=== PATIENT | male | born 1950 | race Caucasian/White ===

== ENCOUNTER → 2018-12-09 07:07 | Outpatient (CLI) | payer MEDICARE, OTHER, SELFPAY ==
[2018-12-09 08:29] LABS: Add Manual Diff / Slide Review NO; Basophils Absolute Auto 0 /uL (0-100); Basophils Percent Auto 0.8 % (0-2); Eosinophils Absolute Auto 300 /uL (0-450); Eosinophils Percent Auto 5.4 % (2-4); Hematocrit 40.3 % (41-53); Hemoglobin 13.5 g/dL (13.5-17.5); Lymphocytes Absolute Auto 1100 /uL (1100-4500); Lymphocytes Percent Auto 24.4 % (25-40); Mean Corpuscular HGB Conc 33.6 % (30-36); Mean Corpuscular Hemoglobin 31.5 PG (26-34); Mean Corpuscular Volume 93.8 fL (80-100); Monocytes Absolute Auto 300 /uL (0-900); Monocytes Percent Auto 7.2 % (3-14); Neutrophils Absolute Auto 2900 /uL (1500-7000); Neutrophils Percent Auto 62.2 % (50-75); Platelet Count 211 X10^3/uL (150-400); Red Cell Distribution Width 12.4 % (11.6-14.8); White Blood Cell Count 4.6 X10^3/uL (4.5-11.0)
[2018-12-09 08:52] LABS: Alanine Aminotransferase 29 IU/L (21-72); Albumin 4.2 g/dL (3.5-5.0); Albumin Globulin Ratio 1.5 (1.0-2.8); Alkaline Phosphatase 77 U/L (38-126); Aspartate Aminotransferase 25 IU/L (17-59); BUN Creatinine Ratio 19.2 (6-22); Bilirubin Total 1.3 mg/dL (0.2-1.3); Blood Urea Nitrogen 25 mg/dL (9-20); Calcium 9.4 mg/dL (8.4-10.2); Carbon Dioxide 31 mmol/L (22-32); Chloride 104 mmol/L (98-107); Cholesterol 160 mg/dL (140-199); Estimated Glomerular Filt Rate 55.1 mL/min (>60); Globulin 2.8 g/dL (1.7-4.1); Glucose 95 mg/dL (80-110); HDL Cholesterol 58 mg/dL (40-60); HEMOLYSIS < 15 (0-50); LDL Cholesterol Calculated 87 mg/dL (<100); Potassium 4.4 mmol/L (3.4-5.1); Sodium 143 mmol/L (137-145); Triglycerides 75 mg/dL (35-150)
[2018-12-09 08:59] LABS: Vitamin D 25 Hydroxy (D3) 69.1 ng/mL (30.0-100.0)
== END ==
PROVIDERS: Visit Provider Nurse Practitioner
DX: D86.0 Sarcoidosis of lung (principal); E78.00 Pure hypercholesterolemia, unspecified
CPT/HCPCS: 36415; 80053; 80061; 82306; 84153; 85025

== ENCOUNTER → 2019-01-22 11:26 | Outpatient (CLI) | payer MEDICARE, OTHER, SELFPAY ==
[2019-01-22 12:17] LABS: Hematocrit 42.1 % (41-53); Hemoglobin 14.4 g/dL (13.5-17.5); Mean Corpuscular HGB Conc 34.2 % (30-36); Mean Corpuscular Hemoglobin 31.4 PG (26-34); Mean Corpuscular Volume 91.9 fL (80-100); Platelet Count 227 X10^3/uL (150-400); Red Blood Cell Count 4.58 X10^6/uL (4.5-5.9); White Blood Cell Count 6.6 X10^3/uL (4.5-11.0)
[2019-01-22 12:32] LABS: Blood Urea Nitrogen 28 mg/dL (9-20); Calcium 9.5 mg/dL (8.4-10.2); Carbon Dioxide 28 mmol/L (22-32); Chloride 101 mmol/L (98-107); Estimated Glomerular Filt Rate > 60.0 mL/min (>60); Glucose 95 mg/dL (80-110); HEMOLYSIS < 15 (0-50); Potassium 4.6 mmol/L (3.4-5.1); Sodium 139 mmol/L (137-145)
[2019-01-22 13:40] LABS: Creatinine Urine Random 53.6 mg/dL; Protein (Total) Urine Random 8 mg/dL (0-12); Protein Creatinine Ratio Urine 0.14 GRAM/24H
== END ==
PROVIDERS: PCP Nurse Practitioner; Visit Provider Student in an Organized Health Care Education/Training Program
DX: N05.9 Unspecified nephritic syndrome with unspecified morphologic changes (principal); D70.9 Neutropenia, unspecified; R80.9 Proteinuria, unspecified
CPT/HCPCS: 36415; 80048; 82570; 84156; 85027

== ENCOUNTER → 2019-01-28 09:09 | Outpatient (CLI) | payer MEDICARE, OTHER, SELFPAY ==
--- NOTE | 2019-01-28 | DI.US.S_ITS ---
PROCEDURE: US RENAL COMPLETE INDICATIONS: CHRONIC KIDNEY DISEASE STAGE 2 TECHNIQUE: Real-time scanning was performed of the kidneys and bladder, with image documentation. COMPARISON: None. FINDINGS: Kidneys: Kidneys are normal in size. Right kidney measures 10.2 cm long; left kidney measures 10.4 cm long. Right renal cortical thickness is 1.5 cm; left renal cortical thickness is 1.7 cm. Renal cortical echotexture is normal. No hydronephrosis or nephrolithiasis. No suspicious solid mass lesions. Bladder: Pre-void bladder volume is 166 mL. Post-void residual is 88 mL. Pre-void images demonstrate no intraluminal masses or stones. On pre-void images, the both ureteral jets are noted with color Doppler interrogation. (Of note, ureteral jets may not be detectable in up to 25% of cases due to insufficient differences in specific gravity between ureteral and bladder urine). Miscellaneous: No free pelvic fluid. IMPRESSION: No significant kidney abnormality is seen. No hydronephrosis. Moderate postvoid residual (88 cc). Dictated by: Roel Adam M.D. on 01/28/2019 at 12:10 Approved by: Roel Adam M.D. on 01/28/2019 at 12:11
== END ==
PROVIDERS: PCP Nurse Practitioner; Visit Provider Student in an Organized Health Care Education/Training Program
DX: N18.2 Chronic kidney disease, stage 2 (mild) (principal)
CPT/HCPCS: 76770

== ENCOUNTER 2019-02-20 18:00 | Observation (INO) | payer MEDICARE, OTHER, SELFPAY ==
[2019-02-10 08:55] VITALS: BMI 29.8
[2019-02-19] VITALS (19 sets, daily range): BP systolic 102–145; BP diastolic 51–88; PULSE 57–84; RESP 10–18; TEMP 35.9–37.2; O2SAT 94–100; BMI 29.8
--- NOTE | 2019-02-19 12:19 | DI.RAD.S_ITS ---
PROCEDURE: XR KNEE LT 1TO2V INDICATIONS: status post left TKA TECHNIQUE: 2 view(s) of the knee acquired. COMPARISON: None. FINDINGS: Bones: Patient is status post knee joint arthroplasty. Hardware components are in expected positions. Visualized bony structures are intact. Soft tissues: Overlying postoperative changes are noted. IMPRESSION: Post left total knee arthroplasty changes with anatomic left knee alignment. Dictated by: Bogdan Ferguson M.D. on 02/19/2019 at 16:22 Approved by: Bogdan Ferguson M.D. on 02/19/2019 at 16:23
--- NOTE | 2019-02-19 12:43 | P.OP_ITS ---
Operative Date/Time/Diagnoses Date of procedure: 02/19/19 Time of procedure: 15:42 Pre-op diagnosis: Left knee osteoarthritis Post-op diagnosis: same Procedure & Clinicians Procedure: Left total knee arthroplasty Same procedure as scheduled: Yes Indications: The patient presents today for total knee arthroplasty after failure of conservative treatment. The nature of the procedure including the risks and benefits, alternatives, postoperative course and expected outcome were discussed and all questions answered. Consent was obtained. Operative site confirmed and marked. Surgeon: Rodrigo Pacheco Md Pediatric Allergist: Chip Reyes Anesthesia Type: General, Spinal and Local Operative Notes Findings: Severe osteoarthritis with valgus alignment. Closure Type: primary Prosthetic devices, grafts, tissues, transplants, or devices: Geovanni Persona TKA 9 CR femoral component, 7 stemmed tibial component, 9 polyethylene tray and 35 x 9 mm all poly patella. Applied: implant(s) Estimated Blood Loss (mL): 50 Blood products transfused: none Tourniquet time (min): 62 Procedure in detail: The patient was taken to the operative suite and placed under general and spinal anesthesia. The patient was given prophylactic antibiotics prior to surgery. The patient was also given tranexamic acid, 1 g, just prior to surgery for postoperative hemostasis. The lateral knee was prepped and the joint injected with 20 mL of 1% Lidocaine with epinephrine. The knee was then prepped and draped in usual sterile fashion. The leg was exsanguinated with an Esmarch dressing and the tourniquet raised to 250 torr. A 15 cm anterior incision was made. Next a medial trivector arthrotomy was made. The extensor mechanism was marked to ensure accurate repair. Initial exposing dissection was carried out medially and laterally. The knee was then extended and the patellar thickness was measured and a cut made removing approximately 9 mm of bone. The patella was then sized and drilled. Some excess lateral bone was excised and the patellofemoral ligament released. The knee was then flexed and the intramedullary femoral guide mary placed. The distal femoral cut was made in 6 ? of valgus at the + 2 position as the femur was measured to a size 9. Holes were drilled at approximately 5? of external rotation which matched Whitesides line. The femoral size was measured and the appropriate cutting block was then placed and the anterior, posterior and chamfer cuts made. The extra medullary tibial alignment mary was then placed along the anatomic axis of the tibia approximating the normal slope. The guide was set to remove approximately 8 mm from the less affected lateral side. The configuration of the patient's proximal tibia was unusual in that more bone was taken laterally despite him having primarily lateral compartment disease. The proximal tibial cut was then made with an oscillating saw. All meniscus and bony debris was then removed. Flexion extension gaps were checked. The knee was still tight both in flexion and extension. Two more mm was removed from the tibia. There was still tightness laterally as expected from his deformity. The lateral capsule was released with a pie crust technique using a 15 blade. The soft tissues were then injected with a combination of 20 mL of half percent Marcaine with epinephrine and 20 mL of Exparel. The trial components were then placed. The knee went into full extension and flexion beyond 120?. There was excellent medial- lateral balance throughout motion. Patellar tracking was acceptable but still slight tilt even after a lateral release was performed. The trial components were removed and the knee was cleansed with Pulsavac irrigation and dried. The final components were cemented in with high viscosity vacuum mixed bone cement with antibiotics. The knee was held in extension and the patellar clamp until the cement had adequately cured. The knee was irrigated and inspected for any further debris. The knee was then irrigated with dilute Betadine solution. The extensor mechanism was closed with 5 interrupted #1 Vicryl sutures in 90 degrees of flexion. The joint was then injected with a combination of 1 g of tranexamic acid and 20 mL of quarter percent Marcaine with epinephrine. The subcutaneous tissue was closed with 2-0 Vicryl. The skin was closed with zahira and surgical adhesive. An Aquacell dressing and Edison wrap were then applied. The patient tolerated the procedure well and was returned to recovery room in good condition. Post-operative Plan for aftercare: [facility] protocol for total knee arthroplasty.
--- NOTE | 2019-02-19 12:43 | PM.PREOP ---
Pre-operative Note Interval Note History & Physical reviewed/Exam performed by Physician: Yes Changes to H&P: No
[2019-02-19] MEDS: LACTATED RINGERS 1,000 ML 42 ML IV ×2 (12:51→14:23)
[2019-02-19] MEDS: PREGABALIN 75 MG CAPSULE PO (12:51)
[2019-02-19] MEDS: CEFAZOLIN 2 GM/100 ML FROZ.PIGGY IV ×2 (13:33→21:29)
[2019-02-19] MEDS: LIDOCAINE 1% W/EPI 20 ML INJ (13:40)
--- NOTE | 2019-02-19 14:12 | SUR.OPER ---
Supine on padded OR bed. Pillow under head, arms secured on padded armboards <90 degree abduction. Safety belt across torso. Non-operative leg secured with tape over blanket over lower leg. Operative leg secured in [place] positioner. Foam padded brace at thigh of operative leg.
[2019-02-19] MEDS: BUPIVACAINE 0.25% W/ EPI (PF) 40 ML, BUPIVACAINE LIPOSOME 266 MG, SODIUM CHLORIDE 0.9% ... INJ (14:17)
[2019-02-19] MEDS: BUPIVACAINE 0.25% W/ EPI (PF) 20 ML, TRANEXAMIC ACID 1,000 MG, SODIUM CHLORIDE 0.9% 10 ML INJ (14:18)
[2019-02-19] MEDS: TRANEXAMIC ACID 1,000 MG VIAL 1000 MG INJ (14:20)
--- NOTE | 2019-02-19 16:25 | SUR.PHASEI ---
Received patient in PACU. Patient A/O x 4. Tolerating PO. BERNABE's x4, cap refill , 2 seconds Left DP +2. Patient denies pain.
--- NOTE | 2019-02-19 17:51 | PC.NURSE ---
Pt awake, admit assessment completed.
[2019-02-19] MEDS: diphenhydrAMINE 50 MG/ML VIAL 25 MG IV (18:18)
[2019-02-19] MEDS: LACTATED RINGERS 1,000 ML 125 ML IV (18:18)
[2019-02-19] MEDS: SIMVASTATIN 10 MG TABLET PO (21:29)
[2019-02-19] MEDS: ACETAMINOPHEN 325 MG TABLET 975 MG PO (21:29)
[2019-02-19] MEDS: TAMSULOSIN 0.4 MG CAPSULE PO (21:29)
--- NOTE | 2019-02-19 22:29 | PC.NURSE ---
ho 2100 pt unable to void with several attempts. bladder scan revealed >999. attempt at I&O catheter unsuccessful as met with resistance at bladder sphincter. I&O attempted with 16g coude and was still unsuccessful. using 16F, finally able to insert ho. Indwelling ho to gravity bag overnight and to re-evaluate in am r/t mass retention and difficulty with insertion.
[2019-02-20] MEDS: diphenhydrAMINE 50 MG/ML VIAL 25 MG IV (00:14)
[2019-02-20] MEDS: OXYCODONE IR 5 MG TABLET 10 MG PO ×3 (02:07→14:00)
[2019-02-20] MEDS: LACTATED RINGERS 1,000 ML 125 ML IV (02:57)
[2019-02-20 06:00] VITALS: BP 113/62; PULSE 79; RESP 18; TEMP 36.8; O2SAT 97
[2019-02-20] MEDS: PANTOPRAZOLE 40 MG TABLET PO (06:00)
[2019-02-20] MEDS: CEFAZOLIN 2 GM/100 ML FROZ.PIGGY IV (06:00)
--- NOTE | 2019-02-20 07:00 | PM.PNPO.1 ---
Subjective Subjective Date Patient Seen: 02/20/19 Time Patient Seen: 07:30 Interval history: Patient is POD#1 s/p left total knee arthroplasty. He states his pain is 3/10, localized to incision site, well controlled with oxycodone and tylenol. He is able to stand, but not ambulate. He has not worked with physical therapy. He was unable to void last night, history of BPH, and a catheter was placed. Patient denies fever, chills, nausea, vomiting, shortness of breath, calf pain, chest pain, palpatations. Exam Vital Signs (past 8 hours): - 02/20/19 06:00 02/20/19 08:29 Temperature 98.3 F 99.2 F Pulse Rate 79 78 Respiratory Rate 18 18 Blood Pressure 113/62 111/64 Pulse Oximetry 97 99 Oxygen Delivery Method Room Air Oxygen Flow Rate 0 Narrative Exam Narrative: 68 y/o M lying comfortably in bed, in no apparent distress. A&Ox3. Dressing is in place on L knee, warm, dry and intact. L knee is warm and dry, without lesions or rashes. Sensory function grossly intact to light touch on . Motor function intact in lower extremities. Dorsalis Pedis 2+ bilaterally. Capillary refill normal bilaterally. Negative homans sign. Objective Labs Result Diagrams: 02/20/19 06:42 Labs: Laboratory Results - last 24 hr 02/20/19 06:42 Hgb 11.9 L Hct 34.9 L Assessment & Plan Post-op Postoperative Procedures: Procedures Operation Date: 02/19/19 13:45 Actual Procedures Side Surgeon p Total Knee Arthroplasty Left Rodrigo Pacheco MD Postoperative status: doing well and urinary retention Postoperative plan narrative: Pain - Continue oxycodone and tylenol. No NSAIDS as per CKD. Urinary Retention - D/C urinary catheter and do trial of void, zofran. Discharge today likely pending resolution of urinary retention and physical therapist note
[2019-02-20 07:04] LABS: Hematocrit 34.9 % (41-53); Hemoglobin 11.9 g/dL (13.5-17.5)
--- NOTE | 2019-02-20 08:00 | P.DS_ITS ---
History of Present Illness History of Present Illness Date Patient Seen: 02/20/19 Time Patient Seen: 08:00 Chief complaint: [id number] Narrative: The patient presents today for total knee arthroplasty after failure of conservative treatment. The nature of the procedure including the risks and benefits, alternatives, postoperative course and expected outcome were discussed and all questions answered. Consent was obtained. Operative site confirmed and marked. Discharge Providers Provider Date of admission: 02/20/19 18:00 Discharge Date: 02/20/19 Primary care physician: STANTON Toure Consults: 02/19/19 17:36 Consult to Discharge Planning Routine Comment: Consult to Physical Therapy Evaluate & Treat Comment: Physician Instructions: postop TKA protocol Consult to Respiratory Therapy Evaluate & Treat Comment: Physician Instructions: Evaluate and treat Discharge provider: Clinton Blakely PA-C Summary Hospital Course Discharge Diagnosis: s/p left total knee arthroplasty Sarcoidosis of lung Hypercholesterolemia Sleep apnea Anxiety Depression Forgetfulness GERD Seasonal allergies Osteoarthritis CKD state G3a/A1, GFR 45-59 and albumin creatinine ration <30 mg/g Paroxysmal atrial fibrillation Obesity (BMI 30.0-34.9) Benign prostatic hyperplasia Rotator cuff impingement syndrom of right shoulder Biceps tendonitis on right Right knee DJD Hospital Course: Patient admitted for left total knee arthroplasty with Dr. Pacheco. During hospital course patient was catheterized overnight for urinary retention and given tamsulosin. In the AM POD #1, catheter was removed and patient passed trial of void. Patient had non-bilious, non bloody vomit 2x, was resolved with Zofran. Post op day #1 patient was ready for discharge home. Patient had prescriptions for pain medicine and urinary retention at home. Zofran prescription given for post-op nausea/vomiting. Patient eating and voiding without difficulty or assistance prior to discharge. Patient was mobilizing with physical therapy prior to discharge. Patient has outpatient physical therapy scheduled. Dressing was CDI. No NSAIDS given because of CKD. Status at Discharge Functional status at discharge: uses cane/walker Exam Vital Signs (past 8 hours): Oxygen Delivery Method Room Air Oxygen Flow Rate 0 Narrative Exam Narrative: 68 year old male lying comfortably in bed, in no apparent distress. A&Ox3. Dressing CDI on anterior L knee. L knee is warm and dry. Sensory function grossly intact to light touch in lower extremities. Patient able to actively dorsiflex/plantar flex. Dorsalis pedis 2+ bilaterally. Capillary refill LE normal bilaterally. Negative homans sign. Objective Labs Result Diagrams: 02/20/19 06:42 Discharge Plan Discharge Plan Patient Disposition: Home Discharge Med Rec/Prescriptions Prescriptions: New acetaminophen 325 mg Tablet 500 mg PO Q4H Qty: 60 RF: 0 ondansetron 4 mg tablet,disintegrating 4 mg PO Q8H Qty: 20 RF: 0 Continued simvastatin 10 mg tablet 10 mg PO BEDTIME Qty: 90 RF: 2 citalopram 40 mg tablet 40 mg PO DAILY Qty: 90 RF: 1 multivitamin tablet 1 tab PO DAILY RF: 0 pantoprazole 40 mg tablet,delayed release (DR/EC) 40 mg PO DAILY RF: 0 sildenafil (antihypertensive) 20 mg tablet See Rx Instructions PO ONCE PRN (Reason: sexual activity) RF: 0 Xarelto 20 mg tablet 20 mg PO QPM RF: 0 loratadine [Allerclear] 10 mg tablet 10 mg PO DAILY RF: 0 Fish/Marine Oil ([place] 3) 2,400 mg PO QPM RF: 0 cholecalciferol (vitamin D3) 5,000 unit capsule 5,000 unit PO DAILY RF: 0 Glucosamine/Chondroitin 2,400 mg PO QPM RF: 0 Probiotics 30 Billion 1 cap PO DAILY RF: 0 tamsulosin [Flomax] 0.4 mg Capsule 0.4 mg PO BEDTIME RF: 0 lidocaine 4 % Cream 1 applic TOPICAL BID PRN (Reason: Pain (Scale Score 1-3)) RF: 0 Follow up/Referrals: Melodie Rowley ARNP [Primary Care Provider] - Rodrigo Pacheco MD [Physician] - Provider Discharge Instructions Diet: Low-protein/Renal Activity: Ambulate as tolerated. Follow [facility] protocol. Cold/Heat Therapy: Continue cold therapy. Skin/Wound/Dressing Care Report to your healthcare provider any signs of infection, such as:: chills, fever, increased pain and unusual drainage Dressing: Keep dressing dry. If saturated, please contact the office. Visit Report/Discharge Packet Instructions: DI for Heart Failure, DI for Knee Replacement Stand Alone Forms: Surgery Discharge Visit Report Forms: Congestive Heart Failure, Stroke Signs & Symptoms Discharge Data Primary Care Provider: Melodie Rowley Attending Provider: Rodrigo Pacheco Admit Date/Time: 02/20/19 18:00 Discharges patient from system. Discharge Date/Time: 02/20/19 19:19
[2019-02-20 08:29] VITALS: BP 111/64; PULSE 78; RESP 18; TEMP 37.3; O2SAT 99
[2019-02-20] MEDS: ACETAMINOPHEN 325 MG TABLET 975 MG PO ×2 (09:18→14:00)
[2019-02-20] MEDS: CITALOPRAM 20 MG TABLET 40 MG PO (09:19)
[2019-02-20] MEDS: LORATADINE 10 MG TABLET PO (09:20)
[2019-02-20] MEDS: SODIUM CHLORIDE 0.9% FLUSH 10 ML IV (09:20)
[2019-02-20] MEDS: ONDANSETRON 4 MG/2 ML INJ IV (09:23)
--- NOTE | 2019-02-20 11:24 | PT.IIE ---
Current Diagnoses Bilateral primary osteoarthritis of knee (02/19/19) Surgery Performed Operation Date: 02/19/19 13:45 Actual Procedures p Total Knee Arthroplasty(Left) - Rodrigo Pacheco MD Surgical History (Last Updated 02/10/19 @ 09:11 by Isadora Anne, RN) Anesthesia (Resolved) H/O cardiac radiofrequency ablation (Acute ~2016) History of ankle surgery (Resolved ~2005) History of cholecystectomy (Resolved ~2009) History of eye surgery (Resolved ~2015) History of tonsillectomy (Resolved ~1957) History of vasectomy (Resolved ~1993) Melanoma (Resolved ~2017) Retinal tear of left eye (Resolved ~2017) Medical History (Last Updated 02/10/19 @ 12:01 by Isadora Anne RN) Abnormal chest x-ray (Chronic ~2017) Anxiety (Chronic ~2001) Arthritis (Chronic ~2014) Atrial fibrillation (Chronic ~2016) Bilateral lower extremity edema (Acute) Cataracts, bilateral (Chronic ~2014) Chicken pox (Resolved ~1959) Chronic knee pain (Acute) CKD (chronic kidney disease), stage II (Acute ~01/2019) Colon polyps (Chronic ~2009) Compression fracture (Resolved ~2005) Depression (Chronic) Fractures (Resolved) GERD (gastroesophageal reflux disease) (Chronic ~2009) Hearing loss (Chronic ~2014) Hypotension (Acute) Low testosterone (Chronic ~2016) Measles (Resolved ~1961) Mumps (Resolved ~1960) Plantar warts (Resolved ~1966) Post traumatic stress disorder (PTSD) (Chronic) Sarcoidosis (Chronic ~2017) Seasonal allergies (Chronic ~1959) Shoulder pain, right (Chronic ~2018) Skin cancer (Chronic ~2017) Sleep apnea (Chronic ~2014) Thoracic lymphadenopathy (Acute) Tinnitus (Chronic ~2014) Vision disorder (Chronic) Physical Therapy Inpatient Evaluation/Re-Eval M1 PT/OT-IP Prior Functional Status Start: 02/20/19 08:41 Freq: NEEDED Status: Active Protocol: Document 02/20/19 10:57 AW (Rec: 02/20/19 11:23 AW [id number]) Medical Review Prior Functional Status Medical History Reviewed Yes Diet/Fluid Consistency Regular Communication Able to make needs known Mobility and Gait Independent with all functional mobility. Recent increased reliance on knee brace for stability but no use of assistive device. Activities of Daily Living and IADL's Independent Prior Functional Level (Other details) Until a month ago, pt had a regular workout routine. Discontinued due to increasing knee pain. Social History Household Members spouse Living Arrangements House Number of Floors (Floors) Two Floors Number of Stairs To Enter/Railing? 3 short ALEX with no railing. Posts nearby for support if needed. 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 He lives with his spouse - a former RN - who is available at home to assist as needed. In addition to cane and FWW, pt has trekking poles. M2 PT-IP Current Condition Start: 02/20/19 08:41 Freq: NEEDED Status: Active Protocol: Document 02/20/19 10:57 AW (Rec: 02/20/19 11:23 AW [id number]) Physical Therapy Current Condition Current Condition Evaluation Date 02/20/19 Treatment Diagnosis s/p L TKA, difficulty walking Onset Date 02/19/19 Weight Bearing Status Weight Bearing Status Weight Bear as Tolerated M3 PT-IP Subjective Start: 02/20/19 08:41 Freq: NEEDED Status: Active Protocol: Document 02/20/19 10:57 AW (Rec: 02/20/19 11:23 AW [id number]) Subjective Physical Therapy Visit Type Type Initial Evaluation Visit Start Time 09:46 Visit Stop Time 10:21 Total Visit Minutes 35 Notes pt with recently-discharge ho cath, no other tethers Physical Therapy Visit Comments Patient Comments Pt is eager to get up and move Patient Goals Pt would like to return home with his 's assistance as soon as possible Therapy Pain Assessment Pain When Pain Assessed During Mobility Pain Present Pain Present Pain Reported Location L knee Intensity 6 Scale Used 0/10 at rest, 4/10 with bed exercise; 6/10 ambulating Pain Management Techniques Apply Cold,Modification of Treatment,Timing of Activity with Medications M4 PT-IP Mobility and Gait Start: 02/20/19 08:41 Freq: NEEDED Status: Active Protocol: Document 02/20/19 10:57 AW (Rec: 02/20/19 11:23 AW [id number]) PT-Bed Mobility Assessment Rolling Type of Rolling Roll to Left Level of Assist Standby Assistance Supine to Sit Supine to Sit Standby Assistance Scooting Scooting to Edge of Bed Standby Assistance PT-Transfer Assessment Sit to and From Stand Sit to and from Stand Standby Assistance,Contact Guard Assistance Equipment Transfer Assistive Device Gait Belt,Front Wheeled Walker Orthotic/Prosthetic Devices or Brace: No Transfers Transfer Destination Bed,Chair Transfer Technique pt ambulated to bed and to chair Transfer Ability Level of Assist Standby Assistance,Contact Guard Assistance Comments Mobility Comments Pt required SBA to CGA for sit to stand transfer and transfer to bed, chair. Pt with good safety awareness after minimal verbal cues for use of UE's and safe use of FWW Gait Assessment Gait Gait Assistance Required: Standby Assistance Distance (Feet) 75 Able to Maintain Weight Bearing Status Yes During Gait Assistive Devices Assistive Device Gait Belt,Front Wheeled Walker Orthotic/Prosthetic Devices or Brace: No Gait Deviations General Gait Pattern Antalgic,Decreased Stride Length,Decreased Feet Clearance,Flexed Trunk,Step-to Gait Comments Gait Comments Pt required SBA for gait using FWW. Pt exhibited step-to gait pattern but was able to correct with mod verbal cues. Pt with good safety awareness. PT-Balance Assessment Sitting Balance and Reactions Static Sitting Balance Ability Good Dynamic Sitting Balance Ability Good Standing Balance and Reactions Static Standing Balance Ability Good Dynamic Standing Balance Ability Good Device Used FWW M5 PT-IP Objective Assessments Start: 02/20/19 08:41 Freq: NEEDED Status: Active Protocol: Document 02/20/19 10:57 AW (Rec: 02/20/19 11:23 AW [id number]) Orientation Orientation/Cognition Level of Alertness Alert Orientation Name,Date,Place,Situation Language Function Ability No Deficits Noted Safety Awareness Understands Safety Issues Memory Description No Deficits Noted Gross Range of Motion Upper Extremity ROM Assessment Within Functional Limits Lower Extremity ROM Assessment Left Impaired Strength Upper Extremity Strength Assessment Within Functional Limits Lower Extremity Strength Assessment Left Impaired Coordination Assessment Gross Coordination Gross Coordination WNL Sensation Assessment Sensation Gross Sensation WNL Muscle Tone Muscle Tone WNL Yes M6 PT-IP Treatment Start: 02/20/19 08:41 Freq: NEEDED Status: Active Protocol: Document 02/20/19 10:57 AW (Rec: 02/20/19 11:23 AW [id number]) Physical Therapy Treatment Exercises Exercises Ankle Pumps,Gluteal Sets, Passive Knee Extension Hang Education Education Provided Precautions,Weight Bearing Status,Post-Op Packet,Safety M7 PT-IP Assessment and Plan Start: 02/20/19 08:41 Freq: NEEDED Status: Active Protocol: Document 02/20/19 10:57 AW (Rec: 02/20/19 11:23 AW [id number]) PT Summary Assessment and Plan Potential Rehabilitation Potential Excellent Status of Condition at Evaluation Stable Summary Impairments Pain,ROM,Strength,Balance, Transfers,Gait,Activity Tolerance Assessment Summary Pt is an active 68 yo man seen for PT eval on POD1 following L TKA. PLOF: Pt was independent with all functional mobility without assistive device and independent with all I/ADL's. CLOF: Pt agreeable to participate in eval. PT provided education on PT plan of care, post-op exercises, weightbearing status, and safe use of FWW. Pt required SBA to CGA for transfers, SBA for ambulation 75 ft with FWW. Once cleared for stairs, PT recommending discharge to home with spouse assist and outpatient PT. Goals Bed Mobility Goal Independent Transfer Goal Independent Gait Goal Independent Gait Distance 150 ft Other Goals up/down 3 steps with unilateral rail or hand-hold assist/CGA. Days to Meet Goals 2 Frequency of Treatment Frequency Of Treatment Twice a Day Treatment Plan Physical Therapy Treatment Plan Bed Mobility Training,Transfer Training,Gait Training, Therapeutic Exercise,Balance Retraining,Post Op Education, Discharge Planning,Hot or Cold Pack,Neuromuscular Re-ed, Coordination Retraining,Manual Therapy Other Recommendations and Next Treatment stairs Focus Recommendations To Nursing Amount of Assist Needed Standby Assistance Discharge Recommendations PT Discharge Recommendations Home with Assistance, Outpatient PT
[2019-02-20 12:00] VITALS: BP 108/57; PULSE 73; RESP 17; TEMP 37.7; O2SAT 96
[2019-02-20] MEDS: ONDANSETRON 4 MG ODT PO (14:00)
--- NOTE | 2019-02-20 14:57 | PC.NURSE ---
Patient resting back in bed after being up to the chair this afternoon. Patient ambulating with walker to restroom to void post ho removal. Voiding darren urine, >200 mls. Patient c/o pain in LLE, PRN medication passed and patient back to bed. Patient denies n/v at this time. Two incidents of n/v earlier this morning with activity, otherwise the patient denies continuous feeling nauseated after emesis.
[2019-02-20 15:54] VITALS: BP 105/60; PULSE 72; RESP 18; TEMP 37.1; O2SAT 96
--- NOTE | 2019-02-20 15:55 | PT.IPTN ---
Current Diagnoses Bilateral primary osteoarthritis of knee (02/19/19) Surgery Performed Operation Date: 02/19/19 13:45 Actual Procedures p Total Knee Arthroplasty(Left) - Rodrigo Pacheco MD Physical Therapy Treatment Note M2 PT-IP Current Condition Start: 02/20/19 08:41 Freq: NEEDED Status: Active Protocol: Document 02/20/19 10:57 AW (Rec: 02/20/19 11:23 AW [id number]) Physical Therapy Current Condition Current Condition Evaluation Date 02/20/19 Treatment Diagnosis s/p L TKA, difficulty walking Onset Date 02/19/19 Weight Bearing Status Weight Bearing Status Weight Bear as Tolerated M3 PT-IP Subjective Start: 02/20/19 08:41 Freq: NEEDED Status: Active Protocol: Document 02/20/19 15:43 AW (Rec: 02/20/19 15:55 AW [email or web address]) Subjective Physical Therapy Visit Type Type Treatment Note Visit Start Time 15:05 Visit Stop Time 15:30 Total Visit Minutes 25 Physical Therapy Visit Comments Patient Comments Pt anticipating discharge this afternoon, happy to work with PT Therapy Pain Assessment Pain When Pain Assessed During Mobility Pain Present Pain Present Pain Reported Location L knee Intensity 9 Scale Used 2/10 at rest; 3/10 with ambulation; 9/10 with stairs Pain Management Techniques Apply Cold,Modification of Treatment,Timing of Activity with Medications M4 PT-IP Mobility and Gait Start: 02/20/19 08:41 Freq: NEEDED Status: Active Protocol: Document 02/20/19 15:43 AW (Rec: 02/20/19 15:55 AW [email or web address]) PT-Bed Mobility Assessment Supine to Sit Supine to Sit Standby Assistance Scooting Scooting to Edge of Bed Standby Assistance PT-Transfer Assessment Sit to and From Stand Sit to and from Stand Standby Assistance,Use of Upper Extremities Equipment Transfer Assistive Device Gait Belt,Front Wheeled Walker Orthotic/Prosthetic Devices or Brace: No Transfers Transfer Destination Bed Transfer Technique pt ambulated to bed Transfer Ability Level of Assist Standby Assistance Comments Mobility Comments Pt required one verbal cue for use of UE's during transfer from EOB. Otherwise, required only SBA. Gait Assessment Gait Gait Assistance Required: Standby Assistance Distance (Feet) 150 Able to Maintain Weight Bearing Status Yes During Gait Assistive Devices Assistive Device Gait Belt,Front Wheeled Walker Orthotic/Prosthetic Devices or Brace: No Gait Deviations General Gait Pattern Antalgic,Decreased Stride Length,Decreased Feet Clearance,Flexed Trunk,Step-to Gait Factors Limiting Gait Function Factors Limiting Gait Function Decreased Activity Tolerance, Decreased Strength,Pain Comments Gait Comments Without cues, pt tended to hop on right foot while using FWW . Pt was educated to use step through pattern with attention to heelstrike. Pt showed good follow-through but returned to step-to pattern with increased fatigue. Stair Climbing Assessment Evaluation Level of Assist On Stairs Standby Assistance Devices Stair Climbing Assistive Devices Left Railing Technique/Endurance Stair Climbing Direction Ascend and Descend Stair Climbing Technique Step to Step Number of Steps Climbed 3 Stair Climbing Set # Repetitions (reps) 2 Comments Stair Climbing Comments Pt able to ascend/descend with step to pattern, forgetting one time to lead with operative leg descending and requiring demonstration/cues to correct pattern. M5 PT-IP Objective Assessments Start: 02/20/19 08:41 Freq: NEEDED Status: Active Protocol: Document 02/20/19 10:57 AW (Rec: 02/20/19 11:23 AW [id number]) Orientation Orientation/Cognition Level of Alertness Alert Orientation Name,Date,Place,Situation Language Function Ability No Deficits Noted Safety Awareness Understands Safety Issues Memory Description No Deficits Noted Gross Range of Motion Upper Extremity ROM Assessment Within Functional Limits Lower Extremity ROM Assessment Left Impaired Strength Upper Extremity Strength Assessment Within Functional Limits Lower Extremity Strength Assessment Left Impaired Coordination Assessment Gross Coordination Gross Coordination WNL Sensation Assessment Sensation Gross Sensation WNL Muscle Tone Muscle Tone WNL Yes M6 PT-IP Treatment Start: 02/20/19 08:41 Freq: NEEDED Status: Active Protocol: Document 02/20/19 15:43 AW (Rec: 02/20/19 15:55 AW [email or web address]) Physical Therapy Treatment Exercises Exercises Ankle Pumps,Gluteal Sets, Passive Knee Extension Hang M7 PT-IP Assessment and Plan Start: 02/20/19 08:41 Freq: NEEDED Status: Active Protocol: Document 02/20/19 15:43 AW (Rec: 02/20/19 15:55 AW [email or web address]) PT Summary Assessment and Plan Potential Rehabilitation Potential Excellent Status of Condition at Evaluation Stable Summary Impairments Pain,ROM,Strength,Balance, Transfers,Gait,Activity Tolerance Assessment Summary Pt with decreased requirement for assistance and good safety awareness at this visit. was also present for caregiver training. PT anticipates safe discharge to home. Goals Bed Mobility Goal Independent Transfer Goal Independent Gait Goal Independent Gait Distance 150 ft Other Goals up/down 3 steps with unilateral rail or hand-hold assist/CGA. Days to Meet Goals 1 Frequency of Treatment Frequency Of Treatment Twice a Day Recommendations To Nursing Amount of Assist Needed 1 Person Assist Discharge Recommendations PT Discharge Recommendations Home with Assistance, Outpatient PT
--- NOTE | 2019-02-20 16:18 | CM.IDA ---
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 Yes Advance Directives on File No History Provided By Patient Prior Living Arrangements House Household Members spouse Type of transporation used prior to Drives own vehicle admit Independent with ADL's Yes Is patient alert and oriented? Yes Barriers to Discharge No Comment No barriers identified at this time to safe DC home. Pt lives w/spouse who is a retired RN and is available to be home to assist pt. Therapy team has evaluated and cleared pt for DC home w/ spouse, likely Sunday POD#2 from left knee surgery. Discharge Plan Home Transportation Arrangement Family Referrals Initiated None needed Review Status In Process
[2019-02-20] MEDS: RIVAROXABAN 10 MG TABLET 20 MG PO (18:14)
== END 2019-02-20 19:19 | disposition home or self-care (01) ==
LOC: AC 18:59 → OR 02-21 07:29 → AC 02-21 07:31
PROVIDERS: Admitting Provider Orthopaedic Surgery; PCP Nurse Practitioner; Visit Provider Orthopaedic Surgery
PROC: 0SRD0JZ Replacement of Left Knee Joint with Synthetic Substitute, Open Approach (ICD-10-PCS; CPT 27447; principal; 2019-02-19 13:45)
DX: M17.12 Unilateral primary osteoarthritis, left knee (principal)
CPT/HCPCS: 27447; 36415; 73560; 85014; 85018; 97110; 97116; 97161; C1776; G0378; C9290; J0690; J1100; J1200; J2250; J2274; J2405; J2704; J3010

== ENCOUNTER → 2019-04-18 12:35 | Outpatient (CLI) | payer MEDICARE, OTHER, SELFPAY ==
[2019-02-19 17:45] VITALS: BMI 29.8
--- NOTE | 2019-04-18 | DI.MRI.S_ITS ---
PROCEDURE: MR HIP LT WO CON INDICATIONS: Pain in left hip TECHNIQUE: Noncontrast coronal T1 spin echo and STIR through the bony pelvis. Coronal and axial T2 fast spin echo with fat saturation, sagittal T1 spin echo, and oblique axial T2 fast spin echo with fat saturation through the hip. COMPARISON: None. FINDINGS: Image quality: Excellent. Bones and joints: No fracture identified. Lower lumbar spondylosis. Sacroiliac joints appear grossly unremarkable. Mild-moderate bilateral hip joint degeneration. Tendons and ligaments: The gluteus medius and minimus tendons appear minimally thickened with T2 hyperintensity in keeping with low-grade tendinopathy. The nearby proximal iliotibial band also appears intact. The iliopsoas tendon appears intact, without adjacent bursal fluid collections or evidence for impingement syndrome Mild thickening of the hamstring origin. This finding technically age unknown The straight and reflected heads of the rectus femoris muscle origin appear intact, as well as the conjoint tendon. The ligamentum teres appears intact where visualized. Labrum and cartilage: Ill-defined tear/degenerative fraying of the anterosuperior labrum. There is adjacent chronic osseous degenerative change in the acetabulum The alpha angle of the femur is within normal limits at less than 55 degrees. Soft tissues: Visualized muscles demonstrate normal bulk and internal signal. Quadratus femoris muscle demonstrates no internal edema to suggest ischiofemoral impingement. The proximal sciatic neurovascular bundle appears normal adjacent to the hamstring tendons. No free pelvic fluid. Bladder wall thickness is normal. Genitourinary structures and bowel loops appear normal where visualized. IMPRESSION: Macerated appearing anterosuperior labral tear versus advanced chronic degeneration. Mild left hip abductor insertional tendinopathy. Mild hamstring origin tendinopathy, technically unknown age. Lower lumbar spondylosis and lateral curvature. Bilateral hip degeneration. Dictated by: Fidencio Castaneda M.D. on 04/18/2019 at 13:33 Approved by: Fidencio Castaneda M.D. on 04/18/2019 at 13:42
== END ==
PROVIDERS: PCP Nurse Practitioner; Visit Provider Orthopaedic Surgery
DX: M25.552 Pain in left hip (principal); M16.0 Bilateral primary osteoarthritis of hip; M47.816 Spondylosis without myelopathy or radiculopathy, lumbar region; M67.9 Unspecified disorder of synovium and tendon
CPT/HCPCS: 73721

== ENCOUNTER → 2019-08-11 06:50 | Outpatient (CLI) | payer MEDICARE, OTHER, SELFPAY ==
[2019-02-19 17:45] VITALS: BMI 29.8
[2019-08-11 07:01] LABS: Bacteria Urine None Seen; RBC Urine None Seen (0-5/HPF); WBC Urine None Seen (0-5/HPF)
[2019-08-11 07:51] LABS: Hematocrit 38.5 % (41-53); Hemoglobin 13.2 g/dL (13.5-17.5)
[2019-08-11 08:10] LABS: BUN Creatinine Ratio 24.4 (6-22); Blood Urea Nitrogen 22 mg/dL (9-20); Calcium 9.5 mg/dL (8.4-10.2); Carbon Dioxide 27 mmol/L (22-32); Chloride 105 mmol/L (98-107); Estimated Glomerular Filt Rate > 60.0 mL/min (>60); Glucose 91 mg/dL (80-110); HEMOLYSIS < 15 (0-50); Potassium 4.8 mmol/L (3.4-5.1); Sodium 139 mmol/L (137-145)
[2019-08-11 08:17] LABS: Appearance Urine UA CLEAR; Bilirubin Urine UA NEGATIVE (NEGATIVE); Color Urine UA YELLOW; Glucose Urine UA NEGATIVE (Negative); Ketones Urine UA NEGATIVE (NEGATIVE); Leukocyte Esterase Urine UA NEGATIVE (NEGATIVE); Nitrite Urine UA NEGATIVE (Negative); Occult Blood Urine UA NEGATIVE (Negative); Protein Urine UA NEGATIVE (Negative); Urobilinogen Urine UA 0.2 E.U./dL (0.2); pH Urine UA 6.5 (4.5-8.0)
[2019-08-11 08:27] LABS: Culture Indicated Urine Cult Not Indicated; Urine Comments Microscopic Normal
[2019-08-11 08:42] LABS: Creatinine Urine Random 152.4 mg/dL; Protein (Total) Urine Random 7 mg/dL (0-12); Protein Creatinine Ratio Urine 0.04 GRAM/24H
== END ==
PROVIDERS: PCP Nurse Practitioner; Referring Provider Student in an Organized Health Care Education/Training Program; Visit Provider Student in an Organized Health Care Education/Training Program
DX: N05.9 Unspecified nephritic syndrome with unspecified morphologic changes (principal); N25.81 Secondary hyperparathyroidism of renal origin; N30.00 Acute cystitis without hematuria; R80.9 Proteinuria, unspecified
CPT/HCPCS: 36415; 80048; 81001; 82570; 83970; 84156; 85014; 85018

== ENCOUNTER → 2019-11-19 12:55 | Outpatient (CLI) | payer MEDICARE, OTHER, SELFPAY ==
[2019-02-19 17:45] VITALS: BMI 29.8
--- NOTE | 2019-11-19 | DI.MRI.S_ITS ---
PROCEDURE: MR SHOULDER RT W CON INDICATIONS: Bursitis of right shoulder TECHNIQUE: After the administration of 12 mL of dilute intra-articular Gadolinium contrast, oblique coronal T1 and T2 spin echo with fat saturation, oblique sagittal T1 spin echo with and without fat saturation, oblique sagittal T2 fast spin echo with fat saturation, axial T1 spin echo with fat saturation through the shoulder. COMPARISON: None. FINDINGS: Image quality: Motion degraded examination. Rotator cuff: High-grade partial thickness articular sided tear of the supraspinatus tendon at the junction of the critical zone and footprint. There is possible pinpoint perforation to the bursal surface with a trace amount of gadolinium contrast material seen within the subacromial-subdeltoid bursa. Infraspinatus tendinopathy is present, low-grade. The teres minor appears intact. Subscapularis tendon appears grossly intact with low-grade articular surface fraying. No atrophy of the rotator cuff muscles. Mild fatty infiltration of the supraspinatus and infraspinatus muscles. Bones and bursae: No bone marrow contusions or fractures. Moderate hypertrophic acromioclavicular joint degeneration. Acromion demonstrates conventional anatomy, without an os acromiale. Capsule and soft tissues: Labrum: Amorphous hypertrophy and intrasubstance signal changes involving the posterior inferior, anteroinferior and inferior labrum. There is adjacent degenerative sclerosis spurring at the glenoid rim. No definite intrasubstance gadolinium signal intensity identified. Long head of the biceps tendon intact. The rotator interval appears normal, without fibrosis. Coracohumeral ligament intact. IMPRESSION: High-grade partial-thickness articular sided tear of the supraspinatus tendon, with suspected subtle pinpoint perforation to the bursal surface as above. Infraspinatus tendinopathy Low-grade articular surface fraying of the subscapularis tendon. Circumferential, chronic labral tear involving the posteroinferior, inferior and anteroinferior segments. Dictated by: Fidencio Castaneda M.D. on 11/19/2019 at 14:23 Approved by: Fidencio Castaneda M.D. on 11/19/2019 at 14:30
--- NOTE | 2019-11-19 12:58 | DI.RAD.S_ITS ---
PROCEDURE: FL SHOULDER INJECTION MR/CT RT INDICATIONS: Bursitis of right shoulder TECHNIQUE: The indications, alternatives, benefits, risks, and complications of the procedure were explained to the patient. Written informed consent was obtained and placed in the chart. The shoulder was examined fluoroscopically and a site for needle placement chosen for entry into the glenohumeral joint from an anterior approach. The skin was prepped and draped in a sterile fashion, and 1% lidocaine infiltrated from skin down to joint capsule. A spinal needle was inserted into the glenohumeral joint, and a small amount of iodinated contrast media injected to confirm intra-articular placement of the needle tip. This was followed by approximately 12 mL dilute solution of a gadolinium containing MR contrast agent. The needle was removed and a dressing was applied. The patient was given postprocedural instructions and sent to the MR suite for MR imaging. FINDINGS: A single fluoroscopic spot image demonstrates intra-articular location of injected iodinated contrast. IMPRESSION: Successful fluoroscopically guided administration of dilute Gadolinium solution into the right shoulder joint for MR arthrogram. Dictated by: Elijah Solomon M.D. on 11/19/2019 at 13:59 Approved by: Elijah Solomon M.D. on 11/19/2019 at 13:59
== END ==
PROVIDERS: PCP Nurse Practitioner; Referring Provider Orthopaedic Surgery; Visit Provider Orthopaedic Surgery
DX: M75.51 Bursitis of right shoulder (principal); M75.111 Incomplete rotator cuff tear or rupture of right shoulder, not specified as traumatic; S43.491A Other sprain of right shoulder joint, initial encounter; M19.011 Primary osteoarthritis, right shoulder
CPT/HCPCS: 23350; 73222; 77002

== ENCOUNTER → 2019-12-09 17:01 | Outpatient (CLI) | payer MEDICARE, OTHER, SELFPAY ==
[2019-02-19 17:45] VITALS: BMI 29.8
[2019-12-09 17:31] LABS: BUN Creatinine Ratio 21.8 (6-22); Blood Urea Nitrogen 26 mg/dL (9-20); Calcium 9.8 mg/dL (8.4-10.2); Carbon Dioxide 30 mmol/L (22-32); Chloride 105 mmol/L (98-107); Estimated Glomerular Filt Rate > 60.0 mL/min (>60); Glucose 100 mg/dL (80-110); HEMOLYSIS < 15 (0-50); Potassium 5.1 mmol/L (3.4-5.1); Sodium 140 mmol/L (137-145)
== END ==
PROVIDERS: PCP Nurse Practitioner; Referring Provider Nurse Practitioner; Visit Provider Nurse Practitioner
DX: N18.3 Chronic kidney disease, stage 3 (moderate) (principal); Z79.899 Other long term (current) drug therapy
CPT/HCPCS: 36415; 80048

== ENCOUNTER → 2020-01-09 12:44 | Outpatient (ROUT) | payer MEDICARE, OTHER, SELFPAY ==
[2019-02-19 17:45] VITALS: BMI 29.8
[2020-01-13 15:10] LABS: Fecal Immunochemical Test Negative (Negative)
== END ==
PROVIDERS: PCP Nurse Practitioner; Visit Provider Nurse Practitioner
DX: Z12.11 Encounter for screening for malignant neoplasm of colon (principal)
CPT/HCPCS: 82274

== ENCOUNTER → 2020-02-19 07:43 | Outpatient (CLI) | payer MEDICARE, OTHER, SELFPAY ==
[2019-02-19 17:45] VITALS: BMI 29.8
[2020-02-19 08:55] LABS: Alanine Aminotransferase 32 IU/L (<50); Albumin 3.8 g/dL (3.5-5.0); Albumin Globulin Ratio 1.6 (1.0-2.8); Alkaline Phosphatase 67 U/L (38-126); Aspartate Aminotransferase 28 IU/L (17-59); BUN Creatinine Ratio 18.4 (6-22); Bilirubin Total 1.1 mg/dL (0.2-1.3); Blood Urea Nitrogen 19 mg/dL (9-20); Carbon Dioxide 31 mmol/L (22-32); Chloride 104 mmol/L (98-107); Cholesterol 179 mg/dL (140-199); Estimated Glomerular Filt Rate > 60.0 mL/min (>60); Globulin 2.4 g/dL (1.7-4.1); Glucose 107 mg/dL (80-110); HDL Cholesterol 57 mg/dL (40-60); HEMOLYSIS < 15 (0-50); LDL Cholesterol Calculated 98 mg/dL (<100); Potassium 4.3 mmol/L (3.4-5.1); Sodium 141 mmol/L (137-145); Total Protein 6.2 g/dL (6.3-8.2); Triglycerides 119 mg/dL (35-150)
[2020-02-19 09:08] LABS: Free T3, Triiodothyronine Free 2.67 pg/mL (2.77-5.27); Free T4, Direct Thyroxine 0.76 ng/dL (0.78-2.19)
[2020-02-19 09:21] LABS: Thyroid Stimulating Hormone 2.01 uIU/mL (0.47-4.68)
[2020-02-19 09:58] LABS: Creatinine Urine Random 182.3 mg/dL
[2020-02-19 10:01] LABS: Microalbumi Creatinin Ratio Ur 4.3 ug/mg CR (<30); Microalbumin Urine Random 0.8 mg/dL (0-1.6)
[2020-02-19 16:42] LABS: Hep C Virus Ab w/Reflex Quant NEGATIVE s/c (NEGATIVE)
== END ==
PROVIDERS: PCP Nurse Practitioner; Referring Provider Nurse Practitioner; Visit Provider Nurse Practitioner
DX: E66.9 Obesity, unspecified (principal); E78.00 Pure hypercholesterolemia, unspecified; F32.9 Major depressive disorder, single episode, unspecified; F41.9 Anxiety disorder, unspecified; I48.0 Paroxysmal atrial fibrillation; N18.3 Chronic kidney disease, stage 3 (moderate); Z11.59 Encounter for screening for other viral diseases
CPT/HCPCS: 36415; 80053; 80061; 82043; 82570; 84153; 84439; 84443; 84481; 86803

== ENCOUNTER → 2020-03-02 08:59 | Outpatient (CLI) | payer MEDICARE, OTHER, SELFPAY ==
[2019-02-19 17:45] VITALS: BMI 29.8
[2020-03-06 08:08] LABS: Testosterone Free 11.69 ng/dL (5.00-21.00); Testosterone Total 285.1 ng/dL (264.0-916.0)
== END ==
PROVIDERS: PCP Nurse Practitioner; Referring Provider Nurse Practitioner; Visit Provider Nurse Practitioner
DX: E29.1 Testicular hypofunction (principal); N52.9 Male erectile dysfunction, unspecified
CPT/HCPCS: 36415; 84402; 84403

== ENCOUNTER → 2020-04-17 10:14 | Outpatient (CLI) | payer MEDICARE, OTHER, SELFPAY ==
[2019-02-19 17:45] VITALS: BMI 29.8
[2020-04-19 15:07] LABS: H. Pylori Antigen Stool Negative (Negative)
== END ==
PROVIDERS: PCP Nurse Practitioner; Referring Provider Nurse Practitioner; Visit Provider Nurse Practitioner
DX: R10.9 Unspecified abdominal pain (principal)
CPT/HCPCS: 87338

== ENCOUNTER → 2020-08-06 12:37 | Outpatient (CLI) | payer MEDICARE, OTHER, SELFPAY ==
[2019-02-19 17:45] VITALS: BMI 29.8
--- NOTE | 2020-08-06 | DI.MRI.S_ITS ---
PROCEDURE: MR HIP LT W CON INDICATIONS: LEFT HIP PAIN TECHNIQUE: After the administration of 10 mL of dilute intra-articular Gadolinium contrast, coronal STIR of the bony pelvis; coronal and oblique axial T1 spin echo with fat saturation, axial T2 fast spin echo with fat saturation, sagittal T1 spin echo with and without fat saturation of the involved hip. COMPARISON: None. FINDINGS: Image quality: Excellent. Bones and joints: Mild left hip joint osteoarthritic changes are seen with joint space narrowing, subchondral sclerosis and small marginal osteophyte formation. No intraosseous lesions or fractures. No avascular necrosis of the femoral head. The visualized lower lumbar spine appears normally aligned. The ligamental, neck, and labral plicae appear normal where visualized. Tendons and ligaments: Distal left gluteus medius and minimus tendinosis at their insertion on greater trochanter is seen, without associated muscle atrophy. The nearby proximal iliotibial band also appears intact. The iliopsoas tendon appears intact, without adjacent bursal fluid collections or evidence for impingement syndrome. The origin of the hamstring tendon is intact at the ischial tuberosity, as well as the associated sacrotuberous ligament. The straight and reflected heads of the rectus femoris muscle origin appear intact, as well as the conjoint tendon. The ligamentum teres appears intact where visualized. Labrum and cartilage: There is contour irregularity and signal abnormality with abnormal contrast extension involving superior anterior left hip labrum consistent with focal labral tear. Cartilage surface of the femoral head appears of normal thickness. No paralabral cysts. The alpha angle of the femur is within normal limits at less than 55 degrees. Soft tissues: Visualized muscles demonstrate normal bulk and internal signal. Quadratus femoris muscle demonstrates no internal edema to suggest ischiofemoral impingement. The proximal sciatic neurovascular bundle appears normal adjacent to the hamstring tendons. No free pelvic fluid. Bladder wall thickness is normal. Genitourinary structures and bowel loops appear normal where visualized. IMPRESSION: 1. Mild left hip joint osteoarthritis. No marrow edema. No fracture or dislocation. No evidence of avascular necrosis. 2. Suggestion of focal superior anterior left hip labral tear. 3. Mild tendinosis involving distal left gluteus medius and minimus at their insertion on greater trochanter. No other muscle or tendon signal abnormality. Dictated by: Bogdan Ferguson M.D. on 08/06/2020 at 16:12 Approved by: Bogdan Ferguson M.D. on 08/06/2020 at 16:33
--- NOTE | 2020-08-06 12:40 | DI.RAD.S_ITS ---
PROCEDURE: FL HIP INJECTION MR/CT LT INDICATIONS: left hip pain TECHNIQUE: The indications, alternatives, benefits, risks, and complications of the procedure were explained to the patient. Written informed consent was obtained and placed in the chart. The hip was examined fluoroscopically with the legs fixed in slight internal rotation, and a site for needle placement chosen for entry into the hip joint from an anterior approach. Care was taken to locate the common femoral artery and vein beforehand. The skin was prepped and draped in a sterile fashion, and 1% Lidocaine infiltrated from skin down to joint capsule. A spinal needle was inserted into the joint, and a small amount of iodinated contrast media injected to confirm intra-articular placement of the needle tip. This was followed by approximately 10 mL dilute solution of a gadolinium containing MR contrast agent. The needle was removed and a dressing was applied. The patient was given postprocedural instructions and sent to the MR suite for imaging. COMPARISON: None. FINDINGS: A single fluoroscopic spot image demonstrates intra-articular location of injected iodinated contrast. IMPRESSION: Successful fluoroscopically guided administration of dilute Gadolinium solution into the hip joint for MR arthrogram. Dictated by: Jason Downs M.D. on 08/06/2020 at 15:57 Approved by: Jason Downs M.D. on 08/06/2020 at 15:57
== END ==
PROVIDERS: PCP Nurse Practitioner; Referring Provider Nurse Practitioner; Visit Provider Nurse Practitioner
DX: M25.552 Pain in left hip (principal); M16.12 Unilateral primary osteoarthritis, left hip
CPT/HCPCS: 27093; 73722; 77002

== ENCOUNTER → 2020-09-06 17:36 | Outpatient (CLI) | payer MEDICARE, OTHER, SELFPAY ==
[2019-02-19 17:45] VITALS: BMI 29.8
--- NOTE | 2020-09-06 17:37 | DI.MRI.S_ITS ---
PROCEDURE: MR LUMBAR SPINE WO CON INDICATIONS: Left hip trochantenc bursitis; L-spine stenosis TECHNIQUE: Noncontrast sagittal T1 spin echo and T2 fast echo, sagittal STIR, axial T1 and T2 fast spin echo through the lumbar spine. In cases with scoliosis, additional coronal T2 fast spin echo may be performed. COMPARISON: None. FINDINGS: Image quality: Excellent. Alignment and Curvature: Lumbar levoscoliosis Bone Marrow: Chronic appearing L2 fracture with moderate anterior height loss. No acute fracture seen. Multilevel degenerative endplate sclerosis and spurring. Diffuse facet arthropathy. Spinal Cord: Conus medullaris terminates at the L1 level. Visualized cord demonstrates normal signal and size. Paraspinous Soft Tissues: No paravertebral masses. There is nonspecific, dependent posterior subcutaneous soft tissue edema from level of L2-sacrum T12-L1: Normal appearance. L1-L2: Mild canal narrowing. Partial effacement of both lateral recesses with bilaterally symmetric appearance. Minimal bilateral foraminal narrowing L2-L3: Mild canal narrowing. Partial effacement of both lateral recesses with bilaterally symmetric appearance. Mild to moderate bilateral foraminal stenosis. L3-L4: Mild canal narrowing. Partial effacement of both lateral recesses with bilaterally symmetric appearance. Moderate bilateral foraminal stenosis, with questionable nerve root compression on both sides. L4-L5: Moderate canal stenosis, predominantly left-sided. Partial effacement of both lateral recesses with bilaterally symmetric appearance. Severe left foraminal stenosis with nerve root compression. Moderate right foraminal narrowing L5-S1: Mild canal narrowing. Partial effacement of both lateral recesses with bilaterally symmetric appearance. Severe left foraminal stenosis with nerve root compression. Mild right foraminal narrowing. IMPRESSION: Lumbar levoscoliosis. Chronic appearing L2 compression fracture Moderate canal narrowing at L4-L5 as above. Diffuse bilateral foraminal stenosis as detailed above by spinal level. Dictated by: Fidencio Castaneda M.D. on 09/07/2020 at 9:14 Approved by: Fidencio Castaneda M.D. on 09/07/2020 at 9:23
== END ==
PROVIDERS: PCP Nurse Practitioner; Referring Provider Orthopaedic Surgery Sports Medicine; Visit Provider Orthopaedic Surgery Sports Medicine
DX: M48.061 Spinal stenosis, lumbar region without neurogenic claudication (principal); M41.86 Other forms of scoliosis, lumbar region; M48.56XA Collapsed vertebra, not elsewhere classified, lumbar region, initial encounter for fracture
CPT/HCPCS: 72148

== ENCOUNTER → 2020-09-13 11:03 | Outpatient (CLI) | payer MEDICARE, OTHER, SELFPAY ==
[2019-02-19 17:45] VITALS: BMI 29.8
--- NOTE | 2020-09-13 | DI.RAD.S_ITS ---
PROCEDURE: FL SHOULDER INJECTION MR/CT RT INDICATIONS: Strain of muscle(s) and tendon(s) of the rotator c COMPARISON: [facility], , [place] SHOULDER INJECTION MR/CT RT, 11/19/2019, 12:27. TECHNIQUE: The indications, alternatives, benefits, risks, and complications of the procedure were explained to the patient. Written informed consent was obtained and placed in the chart. The shoulder was examined fluoroscopically and a site for needle placement chosen for entry into the glenohumeral joint from an anterior approach. The skin was prepped and draped in a sterile fashion, and 1% lidocaine infiltrated from skin down to joint capsule. A spinal needle was inserted into the glenohumeral joint, and a small amount of iodinated contrast media injected to confirm intra-articular placement of the needle tip. This was followed by approximately 12 mL dilute solution of a gadolinium containing MR contrast agent. The needle was removed and a dressing was applied. The patient was given postprocedural instructions and sent to the MR suite for MR imaging. FINDINGS: A single fluoroscopic spot image demonstrates intra-articular location of injected iodinated contrast. IMPRESSION: Successful fluoroscopically guided administration of dilute Gadolinium solution into the shoulder joint for MR arthrogram. Dictated by: Fidencio Castaneda M.D. on 09/13/2020 at 14:13 Approved by: Fidencio Castaneda M.D. on 09/13/2020 at 14:13
--- NOTE | 2020-09-13 | DI.MRI.S_ITS ---
PROCEDURE: MR SHOULDER RT W CON INDICATIONS: Strain of muscle(s) and tendon(s) of the rotator c TECHNIQUE: After the administration of 12 mL of dilute intra-articular Gadolinium contrast, oblique coronal T1 and T2 spin echo with fat saturation, oblique sagittal T1 spin echo with and without fat saturation, oblique sagittal T2 fast spin echo with fat saturation, axial T1 spin echo with fat saturation through the shoulder. COMPARISON: [facility], CR, XR SHOULDER 2+ VIEWS RIGHT, 08/23/2020, 15:46. [facility], MR, MR SHOULDER RT W CON, 11/19/2019, 13:33. FINDINGS: There are postsurgical marrow signal changes in keeping with prior rotator cuff repair. There is displaced soft tissue anchor which is noted within the lateral deltoid muscle for example image 7/9 corresponding to a radiographic appearance seen on the prior study from 08/23/20. Rotator cuff: Large full-thickness tear of the supraspinatus tendon is seen measuring approximately 3.2 cm in the AP dimension as seen on sagittal pulse sequences. This measures 3.7 cm in the transverse/longitudinal dimension as seen on coronal pulse sequences, and may also involve the anterior most fibers of the infraspinatus tendon. There is infraspinatus tendinopathy as before. Partial-thickness articular sided tear of the infraspinatus tendon. Teres minor tendon appears grossly intact. Subscapularis tendinopathy and partial-thickness articular surface fraying is again noted. Atrophy of the infraspinatus muscle, and borderline atrophy of the supraspinatus muscle. Bones and bursae: No bone marrow contusions or fractures. Severe hypertrophic acromioclavicular joint degeneration. Glenohumeral degenerative joint disease also noted. Acromion demonstrates conventional anatomy, without an os acromiale. Capsule and soft tissues: Labrum: Unchanged blunted appearance of the labrum circumferentially most notably involving the posterior inferior, anteroinferior and inferior labrum. This appears grossly unchanged. There is chronic circumferential spurring of the glenoid rim. Long head of the biceps tendon not well visualized which could be due to tenodesis versus rupture. Partial obliteration of the subcoracoid fat signal intensity. Coracohumeral ligament intact. IMPRESSION: Status post rotator cuff repair. Recurrent full-thickness tear of the supraspinatus tendon, and involving the anterior-most fibers of the infraspinatus tendon. Borderline supraspinatus muscle atrophy. Associated displaced/dislodged soft tissue anchor, now seen in an extraosseous location within the lateral deltoid muscle. Infraspinatus tendinopathy, and partial thickness articular sided tear. Atrophy of the infraspinatus muscle is noted. Circumferential blunting of the labrum which is likely chronic , possibly superimposed postsurgical sequela. Please correlate with operative history. Long head biceps tendon not well seen, presumably due to postsurgical effects versus rupture. Dictated by: Fidencio Castaneda M.D. on 09/13/2020 at 13:17 Approved by: Fidencio Castaneda M.D. on 09/13/2020 at 13:57
== END ==
PROVIDERS: PCP Nurse Practitioner; Referring Provider Orthopaedic Surgery; Visit Provider Orthopaedic Surgery
DX: S46.011A Strain of muscle(s) and tendon(s) of the rotator cuff of right shoulder, initial encounter (principal); T84.120A Displacement of internal fixation device of right humerus, initial encounter; X58.XXXA Exposure to other specified factors, initial encounter
CPT/HCPCS: 23350; 73222; 77002

== ENCOUNTER → 2020-10-12 07:11 | Outpatient (CLI) | payer MEDICARE, OTHER, SELFPAY ==
[2020-09-21 09:29] VITALS: BMI 29.8
[2020-10-12 07:40] LABS: Bacteria Urine None Seen; RBC Urine None Seen (0-5/HPF); WBC Urine None Seen (0-5/HPF)
[2020-10-12 08:13] LABS: Add Manual Diff / Slide Review NO; Basophils Absolute Auto 0 /uL (0-100); Basophils Percent Auto 0.9 % (0-2); Eosinophils Absolute Auto 500 /uL (0-450); Hematocrit 37.4 % (41-53); Hemoglobin 12.7 g/dL (13.5-17.5); Lymphocytes Absolute Auto 1200 /uL (1100-4500); Lymphocytes Percent Auto 22.2 % (25-40); Mean Corpuscular Hemoglobin 31.7 PG (26-34); Mean Corpuscular Volume 93.2 fL (80-100); Monocytes Absolute Auto 400 /uL (0-900); Monocytes Percent Auto 6.8 % (3-14); Neutrophils Absolute Auto 3300 /uL (1500-7000); Neutrophils Percent Auto 60.1 % (50-75); Platelet Count 225 X10^3/uL (150-400); Red Blood Cell Count 4.01 X10^6/uL (4.5-5.9); White Blood Cell Count 5.5 X10^3/uL (4.5-11.0)
[2020-10-12 08:42] LABS: Alanine Aminotransferase 24 IU/L (<50); Albumin 3.9 g/dL (3.5-5.0); Albumin Globulin Ratio 1.7 (1.0-2.8); Alkaline Phosphatase 58 U/L (38-126); Aspartate Aminotransferase 29 IU/L (17-59); BUN Creatinine Ratio 21.4 (6-22); Bilirubin Total 0.9 mg/dL (0.2-1.3); Blood Urea Nitrogen 22 mg/dL (9-20); Calcium 9.5 mg/dL (8.4-10.2); Carbon Dioxide 30 mmol/L (22-32); Chloride 103 mmol/L (98-107); Estimated Glomerular Filt Rate > 60.0 mL/min (>60); Globulin 2.3 g/dL (1.7-4.1); Glucose 94 mg/dL (80-110); HEMOLYSIS < 15 (0-50); Potassium 4.7 mmol/L (3.4-5.1); Sodium 139 mmol/L (137-145); Total Protein 6.2 g/dL (6.3-8.2)
[2020-10-12 08:55] LABS: Appearance Urine UA Clear; Color Urine UA Yellow
[2020-10-12 08:56] LABS: Bilirubin Urine UA Negative (NEGATIVE); Culture Indicated Urine Cult Not Indicated; Glucose Urine UA NEGATIVE (Negative); Ketones Urine UA NEGATIVE (NEGATIVE); Leukocyte Esterase Urine UA NEGATIVE (NEGATIVE); Nitrite Urine UA NEGATIVE (Negative); Occult Blood Urine UA Negative (Negative); Protein Urine UA Negative (Negative); Specific Gravity Urine UA 1.015 (1.000-1.035); Urine Comments Microscopic Normal; Urobilinogen Urine UA Normal E.U./dL (0.2)
== END ==
PROVIDERS: PCP Nurse Practitioner; Referring Provider Registered Nurse; Visit Provider Registered Nurse
DX: E78.00 Pure hypercholesterolemia, unspecified (principal); N18.31 Chronic kidney disease, stage 3a; Z01.818 Encounter for other preprocedural examination
CPT/HCPCS: 36415; 80053; 81001; 85025

== ENCOUNTER → 2020-10-14 14:08 | Outpatient (CLI) | payer MEDICARE, OTHER, SELFPAY ==
[2020-09-21 09:29] VITALS: BMI 29.8
--- NOTE | 2020-10-14 14:09 | DI.CT.S_ITS ---
PROCEDURE: CT CHEST WO CON INDICATIONS: one year surveillance of sarcoidosis of lungs TECHNIQUE: Noncontrast 5 mm thick sections acquired from the pulmonary apices to the posterior costophrenic angles. 1 mm lung window, 5 mm thick coronal and sagittal and 7 mm axial MIP reformats were then acquired. For radiation dose reduction, the following was used: automated exposure control, adjustment of mA and/or kV according to patient size. COMPARISON: None. FINDINGS: Lungs: Scattered subsegmental atelectasis and/or scarring. No focal consolidation. Airway thickening in keeping with nonspecific bronchitis and/or reactive airways disease. Pleura: No pleural effusion or pneumothorax. Heart: Heart size is normal. No pericardial effusion. There are minimal coronary artery calcifications. Chest nodes: Mildly enlarged 9 mm right paratracheal lymph node Thyroid gland: Negative Aorta: Normal. Pulmonary arteries: Normal. Esophagus: Normal. Upper abdomen: Small hiatal hernia. Bones: Diffuse spondylosis and facet arthropathy. No fracture. IMPRESSION: No pathologically enlarged lymphadenopathy. Minimal scattered scarring/atelectasis. Small hiatal hernia. Dictated by: Fidencio Castaneda M.D. on 10/14/2020 at 15:10 Approved by: Fidencio Castaneda M.D. on 10/14/2020 at 15:20
== END ==
PROVIDERS: PCP Nurse Practitioner; Referring Provider Nurse Practitioner; Visit Provider Nurse Practitioner
DX: D86.0 Sarcoidosis of lung (principal); K44.9 Diaphragmatic hernia without obstruction or gangrene
CPT/HCPCS: 71250

== ENCOUNTER → 2020-12-20 14:05 | Outpatient (CLI) | payer MEDICARE, OTHER, SELFPAY ==
[2020-09-21 09:29] VITALS: BMI 29.8
[2020-12-20 14:51] LABS: Hemoglobin 12.8 g/dL (13.5-17.5)
[2020-12-20 15:46] LABS: BUN Creatinine Ratio 22.5 (6-22); Blood Urea Nitrogen 27 mg/dL (9-20); Calcium 9.3 mg/dL (8.4-10.2); Carbon Dioxide 29 mmol/L (22-32); Chloride 106 mmol/L (98-107); Creatinine Urine Random 178.8 mg/dL; Estimated Glomerular Filt Rate > 60.0 mL/min (>60); Glucose 86 mg/dL (80-110); HEMOLYSIS < 15 (0-50); Potassium 4.9 mmol/L (3.4-5.1); Sodium 141 mmol/L (137-145)
[2020-12-20 15:47] LABS: Protein (Total) Urine Random < 5 mg/dL (0-12); Protein Creatinine Ratio Urine 0.02 GRAM/24H
[2020-12-21 07:13] LABS: Parathyroid Hormone Int 39 pg/mL (15-65)
== END ==
PROVIDERS: PCP Nurse Practitioner; Referring Provider Student in an Organized Health Care Education/Training Program; Visit Provider Student in an Organized Health Care Education/Training Program
DX: N05.9 Unspecified nephritic syndrome with unspecified morphologic changes (principal); D64.9 Anemia, unspecified; N25.81 Secondary hyperparathyroidism of renal origin; R80.9 Proteinuria, unspecified
CPT/HCPCS: 36415; 80048; 82570; 83970; 84156; 85014; 85018

== ENCOUNTER → 2021-02-21 07:52 | Outpatient (CLI) | payer MEDICARE, OTHER, SELFPAY ==
[2020-09-21 09:29] VITALS: BMI 29.8
[2021-02-21 08:37] LABS: Alanine Aminotransferase 20 IU/L (<50); Albumin 4.2 g/dL (3.5-5.0); Albumin Globulin Ratio 1.6 (1.0-2.8); Alkaline Phosphatase 59 U/L (38-126); Aspartate Aminotransferase 28 IU/L (17-59); BUN Creatinine Ratio 21.7 (6-22); Bilirubin Total 1.1 mg/dL (0.2-1.3); Blood Urea Nitrogen 25 mg/dL (9-20); Calcium 9.2 mg/dL (8.4-10.2); Carbon Dioxide 29 mmol/L (22-32); Chloride 108 mmol/L (98-107); Cholesterol 168 mg/dL (140-199); Estimated Glomerular Filt Rate > 60.0 mL/min (>60); Globulin 2.6 g/dL (1.7-4.1); Glucose 103 mg/dL (80-110); HDL Cholesterol 55 mg/dL (40-60); HEMOLYSIS < 15 (0-50); LDL Cholesterol Calculated 93 mg/dL (<100); Potassium 4.5 mmol/L (3.4-5.1); Sodium 141 mmol/L (137-145); Total Protein 6.8 g/dL (6.3-8.2); Triglycerides 101 mg/dL (35-150)
[2021-02-21 08:45] LABS: Free T3, Triiodothyronine Free 3.52 pg/mL (2.77-5.27); Free T4, Direct Thyroxine 0.84 ng/dL (0.78-2.19)
[2021-02-21 08:59] LABS: Thyroid Stimulating Hormone 1.61 uIU/mL (0.47-4.68)
[2021-02-21 09:02] LABS: Prostate Specific Antigen 2.81 ng/mL (0.10-4.00)
== END ==
PROVIDERS: PCP Nurse Practitioner; Referring Provider Nurse Practitioner; Visit Provider Nurse Practitioner
DX: E78.00 Pure hypercholesterolemia, unspecified (principal); N18.31 Chronic kidney disease, stage 3a; F32.9 Major depressive disorder, single episode, unspecified; F41.9 Anxiety disorder, unspecified; I48.0 Paroxysmal atrial fibrillation; Z79.899 Other long term (current) drug therapy; Z12.5 Encounter for screening for malignant neoplasm of prostate
CPT/HCPCS: G0103; 36415; 80053; 80061; 84153; 84439; 84443; 84481

== ENCOUNTER → 2021-03-23 11:09 | Outpatient (CLI) | payer MEDICARE, OTHER, SELFPAY ==
[2020-09-21 09:29] VITALS: BMI 29.8
--- NOTE | 2021-03-23 | DI.RAD.S_ITS ---
PROCEDURE: XR HIP W PEL IF DONE JEANETH MIN 4V INDICATIONS: Tremor, unspecified TECHNIQUE: AP pelvis with lateral view(s) of the bilateral hip(s). COMPARISON: None. FINDINGS: Bones: No fractures or dislocations. Pelvic ring appears intact. No suspicious bony lesions. Soft tissues: The visualized bowel gas pattern is normal. Pelvic calcifications, likely reflecting phleboliths. IMPRESSION: No acute osseous abnormality. Dictated by: Marlon Devi M.D. on 03/23/2021 at 13:26 Approved by: Marlon Devi M.D. on 03/23/2021 at 13:44
== END ==
PROVIDERS: PCP Nurse Practitioner; Referring Provider Neurological Surgery; Visit Provider Neurological Surgery
DX: M46.1 Sacroiliitis, not elsewhere classified (principal); M43.06 Spondylolysis, lumbar region; R25.1 Tremor, unspecified
CPT/HCPCS: 73522

== ENCOUNTER → 2021-04-13 12:04 | Outpatient (CLI) | payer MEDICARE, OTHER, SELFPAY ==
[2020-09-21 09:29] VITALS: BMI 29.8
--- NOTE | 2021-04-13 12:21 | DI.CT.S_ITS ---
PROCEDURE: CT PEL WO CON INDICATIONS: 70-year-old male with left hip pain, total left knee arthroplasty, history of sacroiliitis TECHNIQUE: Noncontrast 3 mm axial sections acquired through the bony pelvis, with coronal and sagittal reformatting. COMPARISON: [facility], MR, MR LUMBAR SPINE WO CON, 09/06/2020, 17:51. FINDINGS: Image quality: Excellent. Bones: Degenerative disc disease and arthropathy at L4-5 and L5-S1 results in moderate to severe central stenosis at L4-5. Normal bone mineralization present. No evidence of fracture or lytic or blastic osseous lesion. Both sacroiliac joints are preserved. No sacroiliac sclerosis present. Moderate bilateral hip joint space narrowing and small marginal osteophytes present. Both femoral heads have an appropriate contour. Pubic symphysis shows mild joint space narrowing with marginal osteophyte present as well. Soft tissues: Moderate fecal debris in the colon and rectum. Urinary bladder and prostate unremarkable. Musculature unremarkable. IMPRESSION: 1. No unremarkable sacroiliac joints without sclerosis. 2. Bilateral hip osteoarthritis. 3. Moderate lower lumbar spine degenerative disc disease and arthropathy with moderate to severe central stenosis at L4-5. Approved by: Breezy Lloyd M.D. on 04/13/2021 at 13:33
== END ==
PROVIDERS: PCP Nurse Practitioner; Referring Provider Neurological Surgery; Visit Provider Neurological Surgery
DX: M46.1 Sacroiliitis, not elsewhere classified (principal); M25.552 Pain in left hip; M16.0 Bilateral primary osteoarthritis of hip; M51.36 Other intervertebral disc degeneration, lumbar region; M47.816 Spondylosis without myelopathy or radiculopathy, lumbar region; M48.061 Spinal stenosis, lumbar region without neurogenic claudication; Z96.652 Presence of left artificial knee joint
CPT/HCPCS: 72192

== ENCOUNTER → 2021-07-25 14:01 | Outpatient (CLI) | payer MEDICARE, OTHER, SELFPAY ==
[2020-09-21 09:29] VITALS: BMI 29.8
== END ==
PROVIDERS: PCP Nurse Practitioner; Referring Provider Nurse Practitioner; Visit Provider Nurse Practitioner
DX: I48.0 Paroxysmal atrial fibrillation (principal)
CPT/HCPCS: 93005

== ENCOUNTER → 2021-09-09 09:12 | Outpatient (CLI) | payer MEDICARE, OTHER, SELFPAY ==
[2020-09-21 09:29] VITALS: BMI 29.8
--- NOTE | 2021-09-09 09:14 | DI.MRI.S_ITS ---
PROCEDURE: MR HIP LT WO CON INDICATIONS: Left hip pain, bursitis versus tendonitis TECHNIQUE: Noncontrast coronal T1 spin echo and STIR through the bony pelvis. Coronal and axial T2 fast spin echo with fat saturation, sagittal T1 spin echo, and oblique axial T2 fast spin echo with fat saturation through the hip. COMPARISON: [facility], MR, MR HIP LT WO CON, 04/18/2019, 12:52. FINDINGS: Image quality: Excellent. Bones and joints: Mild periarticular osteophyte formation at the bilateral hip joints. Bone marrow of the pelvic ring and proximal femurs show normal signal throughout. No intraosseous lesions or fractures. No avascular necrosis of the femoral heads. The visualized lower lumbar spine appears normally aligned. Tendons and ligaments: The gluteus medius and minimus tendons appear intact, without associated muscle atrophy. The nearby proximal iliotibial band also appears intact. The iliopsoas tendon appears intact, without adjacent bursal fluid collections or evidence for impingement syndrome. There is mild T2 signal elevation within the proximal hamstring tendon at the ischial tuberosity, as before. The straight and reflected heads of the rectus femoris muscle origin appear intact, as well as the conjoint tendon. The ligamentum teres appears intact where visualized. Labrum and cartilage: There is undercutting of the left hip labrum diffusely, as before. Cartilage surface of the femoral head appears of normal thickness. The alpha angle of the femur is within normal limits at less than 55 degrees. Soft tissues: Visualized muscles demonstrate normal bulk and internal signal. Quadratus femoris muscle demonstrates no internal edema to suggest ischiofemoral impingement. The proximal sciatic neurovascular bundle appears normal adjacent to the hamstring tendons. No free pelvic fluid. Bladder wall thickness is normal. Genitourinary structures and bowel loops appear normal where visualized. IMPRESSION: 1. No change in left hip labral tearing. 2. No change in mild left ischiitis. 3. Mild bilateral hip osteoarthritis. Dictated by: Feli Ribera M.D. on 09/09/2021 at 9:49 Approved by: Feli Ribera M.D. on 09/09/2021 at 10:02
== END ==
PROVIDERS: PCP Nurse Practitioner; Referring Provider Nurse Practitioner; Visit Provider Nurse Practitioner
DX: M16.0 Bilateral primary osteoarthritis of hip (principal); S73.102A Unspecified sprain of left hip, initial encounter; M76.02 Gluteal tendinitis, left hip; M76.32 Iliotibial band syndrome, left leg; M25.552 Pain in left hip
CPT/HCPCS: 73721

== ENCOUNTER → 2021-10-25 10:38 | Outpatient (CLI) | payer MEDICARE, OTHER, SELFPAY ==
[2020-09-21 09:29] VITALS: BMI 29.8
--- NOTE | 2021-10-25 10:41 | DI.CT.S_ITS ---
PROCEDURE: CT CHEST WO CON INDICATIONS: one year surveillance, sarcoidosis of lungs TECHNIQUE: Noncontrast 5 mm thick sections acquired from the pulmonary apices to the posterior costophrenic angles. 1 mm lung window, 5 mm thick coronal and sagittal and 7 mm axial MIP reformats were then acquired. For radiation dose reduction, the following was used: automated exposure control, adjustment of mA and/or kV according to patient size. COMPARISON: [facility], CT, CT CHEST WO CON, 10/14/2020, 14:15. FINDINGS: Image quality: Excellent. Lungs and pleura: Biapical scarring is again seen. Mild scattered atelectasis/scarring in periphery of bilateral lung melendez are noted. No pleural effusions or pneumothorax. Central and peripheral airways are patent and normal in caliber. Mediastinum: Heart size is normal. No pericardial effusion. Borderline prominent mediastinal lymph nodes are again seen now measures up to 1.2 cm in size in right paratracheal space series 2, image 26 compared to 9 mm on previous study. No gross hilar lymphadenopathy by size criteria. No Thoracic aorta and central pulmonary arteries are normal in size. Esophagus is normal in caliber. No hiatal hernia. Bones and chest wall: No suspicious bony lesions. No vertebral body compression fractures. No axillary or supraclavicular adenopathy by size criteria. Thyroid gland is within normal limits. Abdomen: Visualized upper abdominal solid organs and bowel loops appear normal in the absence of contrast. Gallbladder is surgically absent. IMPRESSION: 1. Interval slight increase in size of patient's known mediastinal lymph nodes now measures up to 1.2 cm in right paratracheal space compared to 0.9 cm on previous studies. 2. Scattered scarring/atelectasis in bilateral lung melendez. No discrete pulmonary nodule or mass is seen. Airway is patent. Dictated by: Bogdan Ferguson M.D. on 10/25/2021 at 12:08 Approved by: Bogdan Ferguson M.D. on 10/25/2021 at 12:36
== END ==
PROVIDERS: PCP Nurse Practitioner; Referring Provider Nurse Practitioner; Visit Provider Nurse Practitioner
DX: D86.0 Sarcoidosis of lung (principal); J98.11 Atelectasis
CPT/HCPCS: 71250

== ENCOUNTER → 2022-01-02 11:14 | Outpatient (CLI) | payer MEDICARE, OTHER, SELFPAY ==
[2020-09-21 09:29] VITALS: BMI 29.8
[2022-01-02 12:03] LABS: Hematocrit 36.3 % (41-53); Hemoglobin 12.7 g/dL (13.5-17.5)
[2022-01-02 12:59] LABS: BUN Creatinine Ratio 25.5 (6-22); Blood Urea Nitrogen 27 mg/dL (9-20); Calcium 8.9 mg/dL (8.4-10.2); Carbon Dioxide 29 mmol/L (22-32); Chloride 106 mmol/L (98-107); Estimated Glomerular Filt Rate > 60 mL/min (>60); Glucose 81 mg/dL (80-110); HEMOLYSIS < 15 (0-50); Sodium 140 mmol/L (137-145)
[2022-01-02 15:43] LABS: Creatinine Urine Random 86.7 mg/dL
[2022-01-02 15:52] LABS: Protein (Total) Urine Random < 5 mg/dL (0-12); Protein Creatinine Ratio Urine 0.05 GRAM/24H
[2022-01-04 05:23] LABS: Parathyroid Hormone Int 58 pg/mL (15-65)
== END ==
PROVIDERS: PCP Nurse Practitioner; Referring Provider Student in an Organized Health Care Education/Training Program; Visit Provider Student in an Organized Health Care Education/Training Program
DX: N05.9 Unspecified nephritic syndrome with unspecified morphologic changes (principal); D64.9 Anemia, unspecified; N25.81 Secondary hyperparathyroidism of renal origin; R80.9 Proteinuria, unspecified
CPT/HCPCS: 36415; 80048; 82570; 83970; 84156; 85014; 85018

== ENCOUNTER → 2022-01-31 14:26 | Outpatient (CLI) | payer MEDICARE, OTHER, SELFPAY ==
[2020-09-21 09:29] VITALS: BMI 29.8
--- NOTE | 2022-01-31 14:32 | DI.RAD.S_ITS ---
PROCEDURE: XR HAND RT 2V INDICATIONS: spur vs other at mid thumb and Dupuytren's right palm TECHNIQUE: 2 views of the hand(s) acquired. COMPARISON: None. FINDINGS: Bones: No fractures or dislocations. Mild osteoarthritic changes are noted throughout right hand and wrist joints. Carpal bones are normally aligned. No suspicious bony lesions. Soft tissues: No suspicious soft tissue calcifications. IMPRESSION: Mild right hand and wrist joint osteoarthritis. No fracture or dislocation. No suspicious bony lesion or gross soft tissue abnormalities. Dictated by: Bogdan Ferguson M.D. on 01/31/2022 at 16:44 Approved by: Bogdan Ferguson M.D. on 01/31/2022 at 16:44
== END ==
PROVIDERS: PCP Nurse Practitioner; Referring Provider Pediatrics; Visit Provider Pediatrics
DX: M19.041 Primary osteoarthritis, right hand (principal); M19.031 Primary osteoarthritis, right wrist; L98.9 Disorder of the skin and subcutaneous tissue, unspecified
CPT/HCPCS: 73120

== ENCOUNTER 2022-04-12 08:16 | Day surgery (SDC) | payer MEDICARE, OTHER, SELFPAY ==
[2020-09-21 09:29] VITALS: BMI 29.8
[2022-04-12] VITALS (8 sets, daily range): BP systolic 82–137; BP diastolic 58–80; PULSE 54–75; RESP 10–16; TEMP 36.4–36.8; O2SAT 95–99; BMI 29.9
--- NOTE | 2022-04-12 | PATH_ITS ---
[facility] Accession Number: [id number] . 01 Material submitted: . colon - RIGHT COLON POLYP . 01 Diagnosis: Right Colon Polyp, Biopsy: Colonic mucosa with no diagnostic abnormality, consistent with polypoid redundancy. Negative for serrated lesion, dysplasia or malignancy. Additional step sections examined. MRV 04/17/2022 1359 Local . 01 Electronically signed: . Ramiro Amin MD, PhD, Pathologist NPI- [id number] . 01 Gross description: . RIGHT COLON POLYP: Received in formalin is 1 fragment(s) of vang, soft tissue measuring 0.4 x 0.2 x 0.1 cm submitted entirely in 1 cassette(s) /CPE 04/13/2022 0754 Local . 01 Pathologist provided ICD-10: K63.5 . 01 CPT . 671417 Specimen Comment: A courtesy copy of this report has been sent to [phone] Performed at: 01 [facility] [address] [place] [address] [address], [place], [place] [id number] MD Rodrigo Hart MD Phone: [phone]
[2022-04-12] MEDS: SODIUM CHLORIDE 0.9% 1,000 ML 84 ML IV (08:58)
[2022-04-12 09:00] LABS: COVID19 -Nasal RAPID Negative (Negative)
--- NOTE | 2022-04-12 09:00 | P.HP_ITS ---
History of Present Illness History of Present Illness Chief complaint: Colonoscopy Narrative: History of adenomatous colon polyps Patient History Medical History (Updated 01/31/22 @ 14:40 by Jamie Grissom MD) Abnormal chest x-ray (~2017) Anxiety (~2001) Arthritis (~2014) Atrial fibrillation (~2016) Benign prostatic hyperplasia Biceps rupture, proximal Biceps tendonitis on right Bilateral lower extremity edema Cataracts, bilateral (~2014) Chicken pox (~1959) Chronic anticoagulation Chronic knee pain Chronic left hip pain Chronic right shoulder pain CKD (chronic kidney disease), stage II (~01/2019) Colon polyps (~2009) Compression fracture (~2005) Depression Dupuytren contracture Encounter for HCV screening test for high risk patient Erectile dysfunction Forgetfulness Fractures GERD (gastroesophageal reflux disease) (~2009) Gluteal tendinitis of left buttock Greater trochanteric bursitis of right hip Hearing loss (~2014) Hypotension Iliotibial band syndrome, left leg Left hip pain Low testosterone (~2016) Lumbar region somatic dysfunction 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 (~1961) 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 Mumps (~1960) Obstructive sleep apnea Osteoarthritis of left hip Other group home (current) drug therapy Pain Pelvic somatic dysfunction Plantar fasciitis, bilateral Plantar warts (~1966) Post traumatic stress disorder (PTSD) Pre-op examination Right knee DJD Rotator cuff impingement syndrome of right shoulder Sacral region somatic dysfunction Sarcoidosis (~2017) Seasonal allergies (~1959) Seasonal allergies Segmental and somatic dysfunction of abdomen and other regions Short leg syndrome, left, acquired Short leg syndrome, right, acquired Shoulder pain, right (~2018) Skin cancer (~2017) Sleep apnea (~2014) Somatic dysfunction of lower extremity Stiff back Thoracic lymphadenopathy Thumb lesion Tinnitus (~2014) Torn rotator cuff Trochanteric bursitis of left hip Vision disorder Surgical History Anesthesia H/O cardiac radiofrequency ablation (~2016) History of ankle surgery (~2005) History of cholecystectomy (~2009) History of eye surgery (~2015) History of tonsillectomy (~1957) History of vasectomy (~1993) Melanoma (~2017) Retinal tear of left eye (~2017) Family & Social History Family History Father Mental health problem Mother Lung cancer Depression Alcoholism Brother Overweight Type II diabetes mellitus Grandfather Diabetes mellitus Grandmother No problems noted. Grandfather Cancer Grandmother Breast cancer Hypertension Family/Other Overweight Social History: household members spouse Tobacco & Substance use: Smoking Status Never smoker alcohol intake current alcohol intake frequency a few times a month Substance Use Type does not use Meds Home Medications and Allergies Home Medications Medication Instructions Recorded Confirmed Type Fish/Marine Oil (Fifty Six 3) 2,400 mg PO QPM 11/07/18 04/12/22 History Glucosamine/Chondroitin 2,400 mg PO QPM 11/07/18 04/12/22 History Probiotics 30 Billion 1 cap PO DAILY 11/07/18 04/12/22 History cholecalciferol (vitamin D3) 125 5,000 unit PO DAILY 11/07/18 04/12/22 History mcg (5,000 unit) capsule loratadine 10 mg tablet 10 mg PO DAILY 11/07/18 04/12/22 History (Allerclear) multivitamin 1 tab PO DAILY 11/07/18 04/12/22 History pantoprazole 40 mg tablet,delayed 40 mg PO DAILY 11/07/18 04/12/22 History release rivaroxaban 20 mg tablet (Xarelto) 20 mg PO QPM 11/07/18 04/12/22 History tamsulosin 0.4 mg capsule (Flomax) 0.4 mg PO DAILY 01/20/21 04/12/22 History duloxetine 60 mg capsule,delayed 60 mg PO DAILY #90 caps 04/01/21 04/12/22 Rx release celecoxib 200 mg capsule 200 mg PO BID 08/25/21 04/12/22 History Respironics DreamStation 2 09/06/21 03/08/22 History ferrous sulfate 325 mg (65 mg 325 mg PO DAILY 09/06/21 04/12/22 History iron) tablet simvastatin 10 mg tablet See Rx Instructions .Route 01/01/22 04/12/22 Rx .COMPLEX #90 tabs acetaminophen 325 mg tablet 1,000 mg PO BID 04/12/22 04/12/22 History Allergies Allergy/AdvReac Type Severity Reaction Status Date / Time influenza A (H5N1) virus Allergy Severe Encephaliti Verified 04/12/22 08:46 vaccine mo s NSAIDS (Non-Steroidal Allergy Severe CKD-Stage Verified 04/12/22 08:46 Anti-Inflamma II Sulfa (Sulfonamide Allergy Unknown my mother Verified 04/12/22 08:46 Antibiotics) told me about it and I have never taken it. horseradish AdvReac Severe Diarrhea Verified 04/12/22 08:46 Exam Vital Signs (past 8 hours): - 04/12/22 08:50 Temperature 97.5 F L Pulse Rate 75 Respiratory Rate 16 Blood Pressure 127/78 Pulse Oximetry 98 Oxygen Delivery Method Room Air Oxygen Flow Rate 0 Oxygen Delivery Method Room Air Oxygen Flow Rate 0 Narrative Exam Narrative: Oropharynx free of lesions Chest clear to auscultation percussion Cardiac exam reveals no S3 or murmur Assessment & Plan Assessment & Plan narrative: History of adenomatous colon polyps need for follow-up colonoscopy. Risks, benefits, alternatives have been explained. Time Spent With Patient Critical Care time: I spent a total of [] minutes of critical care time on this patient's care today; this time is exclusive of procedural time.
--- NOTE | 2022-04-12 09:01 | PM.OP.COLON ---
Operative Date/Time/Diagnoses Date of procedure: 04/12/22 Pre-op diagnosis: See indication and findings Procedure & Clinicians Study performed: Colonoscopy Indications: History of adenomatous colon polyps Surgeon: Hayden Leonard Procedure Notes Procedure in detail: After informed consent was obtained the patient was placed in left lateral decubitus position. The video colonoscope was introduced the rectum and slowly advanced to the cecum. On slow withdrawal mucosa was carefully examined. The scope was removed. The patient tolerated procedure well. Blood loss none Complications none Sedation propofol Findings 1. 5 mm polyp in the distal right colon Jumbo biopsy removed completely 2. Otherwise negative colonoscopy to cecum with possible retroflex cecum Given only 1 polyp, even if adenomatous, new guidelines which suggest follow-up in 7 years. He is to stay off of his Xarelto for at least 3 more days.
== END 2022-04-12 10:47 | disposition home or self-care (01) ==
PROVIDERS: PCP Nurse Practitioner; Referring Provider Internal Medicine Gastroenterology; Visit Provider Internal Medicine Gastroenterology
PROC: 0DJD8ZZ Inspection of Lower Intestinal Tract, Via Natural or Artificial Opening Endoscopic (ICD-10-PCS; CPT 45378; principal; 2022-04-12 09:30)
DX: Z12.11 Encounter for screening for malignant neoplasm of colon (principal); Z86.010 Personal history of colon polyps; Z20.822 Contact with and (suspected) exposure to COVID-19
CPT/HCPCS: 45380; 87635; C9803; J2704

== ENCOUNTER → 2022-09-12 16:51 | Outpatient (CLI) | payer MEDICARE, OTHER, SELFPAY ==
[2020-09-21 09:29] VITALS: BMI 29.8
--- NOTE | 2022-09-12 16:53 | DI.RAD.S_ITS ---
PROCEDURE: XR THORACIC SPINE 3V INDICATIONS: back pain TECHNIQUE: 3 views of the thoracic spine were acquired. COMPARISON: [facility], CR, XR LUMBAR SPINE 2-3V, 09/12/2022, 16:51. [facility], CT, CT CHEST WO CON, 10/25/2021, 10:53. FINDINGS: Bones: No fractures or dislocations. Mild right convexity curvature centered at T8-T9. No definite thoracic vertebral body compression fracture identified. At least mild multilevel degenerative changes present. Soft tissues: No paravertebral stripe thickening. IMPRESSION: No definite thoracic vertebral body compression fracture identified. At least mild multilevel degenerative changes are present. If symptoms persist, follow-up radiographs and/or CT or MRI may be helpful for further evaluation. Dictated by: Adeel Murrieta M.D. on 09/13/2022 at 10:05 Approved by: Adeel Murrieta M.D. on 09/13/2022 at 10:12
--- NOTE | 2022-09-12 16:53 | DI.RAD.S_ITS ---
PROCEDURE: XR LUMBAR SPINE 2-3V INDICATIONS: back pain TECHNIQUE: 3 views of the lumbar spine were acquired. COMPARISON: [facility], MR, MR LUMBAR SPINE WO CON, 09/06/2020, 17:51. FINDINGS: Bones: 5 [id number] vertebrae are present. Left convexity curvature of the lumbar spine centered at L3. Redemonstrated superior endplate compression deformity of L2, with approximately 50% vertebral body height loss, similar to slightly increased since the prior MRI. Severe multilevel degenerative changes of the lumbar spine are present. Soft tissues: Overlying bowel gas pattern is normal. No suspicious soft tissue calcifications. IMPRESSION: 1. Severe multilevel degenerative changes of the lumbar spine. 2. Redemonstrated L2 compression fracture, similar to mildly increased vertebral body height loss allowing for differences in modality. 3. If symptoms persist, follow-up radiographs and/or CT or MRI may be helpful for further evaluation. Dictated by: Adeel Murrieta M.D. on 09/13/2022 at 9:52 Approved by: Adeel Murrieta M.D. on 09/13/2022 at 10:05
== END ==
PROVIDERS: PCP Nurse Practitioner; Referring Provider Nurse Practitioner; Visit Provider Nurse Practitioner
DX: M47.816 Spondylosis without myelopathy or radiculopathy, lumbar region (principal); M47.814 Spondylosis without myelopathy or radiculopathy, thoracic region; M48.56XA Collapsed vertebra, not elsewhere classified, lumbar region, initial encounter for fracture; M54.9 Dorsalgia, unspecified
CPT/HCPCS: 72072; 72100

== ENCOUNTER → 2022-09-19 14:40 | Outpatient (CLI) | payer MEDICARE, OTHER, SELFPAY ==
[2020-09-21 09:29] VITALS: BMI 29.8
--- NOTE | 2022-09-19 14:41 | DI.MRI.S_ITS ---
PROCEDURE: MR LUMBAR SPINE WO CON INDICATIONS: lumbar back pain TECHNIQUE: Noncontrast sagittal T1 spin echo and T2 fast echo, sagittal STIR, and T2 fast spin echo through the lumbar spine. In cases with scoliosis, additional coronal T2 fast spin echo may be performed. COMPARISON: [facility], MR, MR LUMBAR SPINE WO CON, 09/06/2020, 17:51. [facility], CR, XR LUMBAR SPINE 2-3V, 09/12/2022, 16:51. FINDINGS: Image quality: Excellent. Alignment and Curvature: There is moderate levoconvex lumbar scoliosis. Mild retrolisthesis is seen at the L2-L3 level. Bone Marrow: Marrow is of normal overall signal. No acute vertebral body compression fractures. There is a stable remote L2 anterior wedge deformity seen. Spinal Cord: Conus medullaris terminates at the L1 level. Visualized cord demonstrates normal signal and size. Paraspinous Soft Tissues: No paravertebral masses. T12-L1: The disc height and disk signal are well-preserved. Mild to moderate disc bulge is seen. At least moderate facet hypertrophy is seen. Associated hypertrophy of the ligamentum flavum can be seen. Moderate bilateral neural foraminal narrowing is seen. Moderate central canal narrowing is seen. When comparison is made with the prior images, these findings are similar. L1-L2: Mild loss of disc height is seen. Loss of disc signal is seen. Moderate disc bulge is seen, which is eccentric to the left. Mild to moderate facet hypertrophy is seen. Associated hypertrophy of the ligamentum flavum can be seen. Mild bilateral neural foraminal narrowing is seen. Moderate central canal narrowing is seen. When comparison is made with the prior images, these findings are similar. L2-L3: At least moderate loss of disc height and disc signal can be seen. Reactive marrow endplate changes are seen, which are hyperintense on T1-weighted and T2-weighted imaging and most consistent with fatty metaplasia (Modic type II changes). At least moderate disc bulge is seen, which is eccentric to the right. Bridging endplate osteophytes are seen on the right. Mild to moderate facet hypertrophy is seen. There is at least moderate bilateral neural foraminal narrowing seen at this level. At least moderate central canal narrowing is seen. When comparison is made with the prior images, these findings are similar. L3-L4: Mild loss of disc height is seen. Loss of disc signal is seen. At least moderate disc bulge is seen, which is eccentric to the right side. Mild to moderate facet hypertrophy is seen. There is moderate to severe bilateral neural foraminal narrowing seen, with an associated a degree of compression seen upon the exiting nerve roots. Moderate to severe central canal narrowing is also seen. When comparison is made with the prior images, these findings are similar. L4-L5: The disc height is well-preserved. Loss of disc signal is seen at this level. At least moderate disc bulge is seen. There is a superimposed central disc protrusion. At least moderate facet hypertrophy is seen. Associated hypertrophy of the ligamentum flavum can be seen. There is at least moderate right-sided and moderate to severe left-sided neural foraminal narrowing. There is a degree of compression seen upon the exiting nerve roots. At least moderate central canal narrowing is seen at this level. No significant change from the prior. L5-S1: Moderate loss of disc height is seen. Loss of disc signal is seen. The disc height is well-preserved. Loss of disc signal is seen at this level. Moderate disc bulge is seen, which is eccentric to the left. There is a central/left disc protrusion seen. Mild facet joint hypertrophy is seen. There is at least moderate right-sided and moderate to severe left-sided neural foraminal narrowing. There is a degree of compression seen upon the exiting nerve roots. Mild central canal narrowing is seen. IMPRESSION: Levoconvex scoliosis and multiple levels of lumbar spine degenerative change are seen. Degenerative changes are similar to 202. Stable remote L2 anterior wedge deformity. Dictated by: Roel Adam M.D. on 09/19/2022 at 15:52 Approved by: Roel Adam M.D. on 09/19/2022 at 15:57
--- NOTE | 2022-09-19 15:27 | DI.DEXA.S_ITS ---
Bone Density Report Name: MAXIMILIANO RUBIO Age: 72 Sex: Male Ethnicity: White Date of : 1950 Indication: screening for osteoporosis; prior fracture; Referring Provider: JANET AGUERO Study: Bone densitometry was performed. Exam Date: September 19, 2022 Accession number: [id number] Bone Density: Region BMD T-score Z-score Classification AP Spine(L1-L4) 1.183 1.2 1.8 Normal Femoral Neck (Left) 0.672 -1.6 -0.7 Osteopenia Total Hip (Left) 0.780 -1.3 -1.0 Osteopenia Femoral Neck (Right) 0.716 -1.2 -0.4 Osteopenia Total Hip (Right) 0.850 -0.8 -0.5 Normal Total Hip Mean 0.815 -1.1 -0.8 Osteopenia World Health Organization criteria for BMD impression classify patients as: Normal (T-score at or above -1.0), Osteopenia (T-score between -1.0 and -2.5), or Osteoporosis (T-score at or below -2.5). 10-year Fracture Risk: FRAX not reported because: Prior hip or vertebral fracture Impression: The patient has low bone mass, based on the Left Femoral Neck T-score. The patient has risk factors, including: previous fracture. Discussion: INCREASED RISK OF FRACTURE DUE TO HISTORY OF LOW TRAUMA FRACTURE. The patient's previous fracture puts the patient at high risk of a future fracture. In untreated patients, the risk of osteoporotic fracture increases approximately two-fold for each 1.0 SD decrease in T-score. Low bone density is not the only risk factor for fracture; also consider factors such as patient's age, frailty or poor health, risk of falling, risk of injury, previous osteoporotic fracture, family history of osteoporosis, cigarette smoking, low body weight, etc. Not everyone with a low trauma fracture has osteoporosis; osteomalacia and other metabolic bone disorders should also be considered. Patients who have osteoporosis should be evaluated for specific diseases and conditions (secondary causes) that may cause or contribute to bone loss and fracture risk. National Osteoporosis Foundation (NOF) recommends pharmacologic intervention for patients with a prior low trauma hip or vertebral fracture regardless of BMD T-score. The patient should follow a healthful lifestyle (good nutrition with adequate calcium and vitamin D, and appropriate weight-bearing exercise). Follow-Up: Consider a repeat BMD and Vertebral Fracture Assessment (VFA) exam in 2 years or sooner if medically necessary, to reassess this patient's status. Reported by: LEATHA BEARDEN MD on 09/19/2022 3:11:00 PM.
== END ==
PROVIDERS: PCP Nurse Practitioner; Referring Provider Nurse Practitioner; Visit Provider Nurse Practitioner
DX: M47.816 Spondylosis without myelopathy or radiculopathy, lumbar region; M41.9 Scoliosis, unspecified; Z13.820 Encounter for screening for osteoporosis; M80.08XA Age-related osteoporosis with current pathological fracture, vertebra(e), initial encounter for fracture; M85.852 Other specified disorders of bone density and structure, left thigh; M54.50 Low back pain, unspecified
CPT/HCPCS: 72148; 77080

== ENCOUNTER 2022-09-26 14:52 | Emergency (ER) | payer MEDICARE, OTHER, SELFPAY ==
[2020-09-21 09:29] VITALS: BMI 29.8
[2022-09-26 15:53] VITALS: BP 133/81; PULSE 73; RESP 16; TEMP 36.2; O2SAT 99; BMI 30.9
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
[2022-09-26 18:55] VITALS: BP 126/81; PULSE 70; RESP 16; O2SAT 99
== END 2022-09-26 18:55 | disposition home or self-care (01) ==
PROVIDERS: Emergency Provider Emergency Medicine; PCP Nurse Practitioner
DX: S16.1XXA Strain of muscle, fascia and tendon at neck level, initial encounter (principal); S09.90XA Unspecified injury of head, initial encounter; V89.2XXA Person injured in unspecified motor-vehicle accident, traffic, initial encounter; Z79.01 Long term (current) use of anticoagulants
CPT/HCPCS: 70450; 99284

== ENCOUNTER 2022-12-21 10:01 | Emergency (ER) | payer MEDICARE, OTHER, SELFPAY ==
[2020-09-21 09:29] VITALS: BMI 29.8
[2022-12-21] VITALS (13 sets, daily range): BP systolic 108–124; BP diastolic 71–86; PULSE 61–73; RESP 11–21; TEMP 36.8; O2SAT 97–100; BMI 31.1
--- NOTE | 2022-12-21 10:09 | DI.RAD.S_ITS ---
PROCEDURE: XR CHEST 1V INDICATIONS: Shortness of breath TECHNIQUE: One view of the chest was acquired. COMPARISON: None. FINDINGS: Surgical changes and devices: None. Lungs and pleura: Lungs are clear. No pleural effusions or pneumothorax. Mediastinum: Mediastinal contours appear normal. Heart size is normal. Bones and chest wall: No suspicious bony lesions. Overlying soft tissues appear unremarkable. IMPRESSION: No acute cardiopulmonary process. Dictated by: Truman Owen M.D. on 12/21/2022 at 10:52 Approved by: Truman Owen M.D. on 12/21/2022 at 10:53
--- NOTE | 2022-12-21 10:10 | ED.GENADULT ---
HPI - General Adult General Chief complaint: Shortness of Breath/Dyspnea Stated complaint: sob, Time Seen by Provider: 12/21/22 10:02 History of Present Illness HPI narrative: 72-year-old gentleman with a history of paroxysmal atrial fibrillation post ablation currently on Xarelto with no recurrent episodes of AFib post Xarelto, hyperlipidemia, depression presents with exertional dyspnea complaints. Notes that it has been going on for approximately 6 months and getting progressively worse. Yesterday he walked up a hill and was significantly dyspneic at the top of the hill and he noted specifically 6 months ago he did not have similar symptoms. He is noticed that stairs will consistently do the same thing. Had an episode just prior to falling asleep 1-2 weeks ago where he had significant left-sided chest tightness that had not resolved by the time was able to fall asleep but had resolved by the time he woke up. He notes that he will occasionally have recurrent episodes of this left-sided chest tightness but that does not seem to be as exertional related as the increasing exertional dyspnea. 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 He complains of poor sleep last night secondary to left femoral nerve pain for which he is working with physical therapist. He describes no cough, palpitations, abdominal pain, nausea, vomiting. He notes chronic lower extremity edema for which he wears compression socks ever since his cardiac ablation. Related Data Home Medications Medication Instructions Recorded Confirmed Fish/Marine Oil (Medimont 3) 2,400 mg PO QPM 11/07/18 12/04/22 Glucosamine/Chondroitin 2,400 mg PO QPM 11/07/18 12/04/22 Probiotics 30 Billion 1 cap PO DAILY 11/07/18 12/04/22 cholecalciferol (vitamin D3) 125 5,000 unit PO DAILY 11/07/18 12/04/22 mcg (5,000 unit) capsule loratadine 10 mg tablet 10 mg PO DAILY 11/07/18 12/04/22 (Allerclear) multivitamin 1 tab PO DAILY 11/07/18 12/04/22 pantoprazole 40 mg tablet,delayed 40 mg PO DAILY 11/07/18 12/04/22 release rivaroxaban 20 mg tablet (Xarelto) 20 mg PO QPM 11/07/18 12/04/22 celecoxib 200 mg capsule 200 mg PO BID 08/25/21 12/04/22 Respironics DreamStation 2 09/06/21 12/04/22 ferrous sulfate 325 mg (65 mg 325 mg PO DAILY 09/06/21 12/04/22 iron) tablet acetaminophen 325 mg tablet 1,000 mg PO BID 04/12/22 12/04/22 Previous Rx's Medication Instructions Recorded simvastatin 10 mg tablet See Rx Instructions .Route 01/01/22 .COMPLEX #90 tabs duloxetine 60 mg capsule,delayed 60 mg PO DAILY #90 caps 08/07/22 release hepatitis B virus vacc.rec(PF) 20 0.5 ml IM ONCE #0.5 mL 08/25/22 mcg/mL intramuscular susp Allergies Allergy/AdvReac Type Severity Reaction Status Date / Time influenza A (H5N1) virus Allergy Severe Encephaliti Verified 12/21/22 10:09 vaccine mo s Sulfa (Sulfonamide Allergy Unknown my mother Verified 12/21/22 10:09 Antibiotics) told me about it and I have never taken it. horseradish AdvReac Severe Diarrhea Verified 12/21/22 10:09 Review of Systems Review of Systems Narrative: Pertinent positive and negative findings as per HPI Patient History Medical History Abnormal chest x-ray (~2017) Anxiety (~2001) Arthritis (~2014) Atrial fibrillation (~2016) Benign prostatic hyperplasia Biceps rupture, proximal Biceps tendonitis on right Bilateral lower extremity edema Cataracts, bilateral (~2014) Chicken pox (~1959) Chronic anticoagulation Chronic knee pain Chronic left hip pain Chronic right shoulder pain CKD (chronic kidney disease), stage II (~01/2019) Colon polyps (~2009) Compression fracture (~2005) Depression Dupuytren contracture Encounter for HCV screening test for high risk patient Erectile dysfunction Forgetfulness Fractures GERD (gastroesophageal reflux disease) (~2009) Gluteal tendinitis of left buttock Greater trochanteric bursitis of right hip Hearing loss (~2014) Hypotension Iliotibial band syndrome, left leg Left hip pain Low testosterone (~2016) Lumbar region somatic dysfunction Lumbar spinal stenosis Lumbar spondylosis 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 Mumps (~1960) Neuroforaminal stenosis of lumbosacral spine Obstructive sleep apnea Osteoarthritis of left hip Osteopenia determined by x-ray Other grease cup filler (current) drug therapy Pain Pelvic somatic dysfunction Plantar fasciitis, bilateral Plantar warts (~1966) Post traumatic stress disorder (PTSD) Pre-op examination Right knee DJD Rotator cuff impingement syndrome of right shoulder Sacral region somatic dysfunction Sarcoidosis (~2018) Seasonal allergies (~1960) Seasonal allergies Segmental and somatic dysfunction of abdomen and other regions Short leg syndrome, left, acquired Short leg syndrome, right, acquired Shoulder pain, right (~2019) Skin cancer (~2018) Sleep apnea (~2014) Somatic dysfunction of lower extremity Stiff back Thoracic lymphadenopathy Thumb lesion Tinnitus (~2014) Torn rotator cuff Trochanteric bursitis of left hip Vision disorder Surgical History Anesthesia H/O cardiac radiofrequency ablation (~2016) History of ankle surgery (~2005) History of cholecystectomy (~2009) History of eye surgery (~2015) History of tonsillectomy (~1957) History of vasectomy (~1993) Melanoma (~2017) Retinal tear of left eye (~2017) Family History Father Mental health problem Mother Lung cancer Depression Alcoholism Brother Overweight Type II diabetes mellitus Grandfather Diabetes mellitus Grandmother No problems noted. Grandfather Cancer Grandmother Breast cancer Hypertension Family/Other Overweight Social History household members: spouse Smoking Status: Never smoker second hand exposure: No alcohol intake: current substance use type: does not use Smoking Status: Never smoker alcohol intake frequency: a few times a month Substance Use Type: does not use Exam Initial Vital Signs Initial Vital Signs: Vital Signs Temperature 98.3 F 12/21/22 10:02 Pulse Rate 71 12/21/22 10:02 Respiratory Rate 15 12/21/22 10:02 Blood Pressure 124/71 12/21/22 10:02 Pulse Oximetry 98 12/21/22 10:02 Oxygen Delivery Method Room Air 12/21/22 10:02 General: Healthy appearing, in no acute distress. Able to give a complete and coherent history. Well-nourished well-developed HEENT: Moist mucous membranes, normal sclera with reactive pupils, Neck: No JVD, supple Respiratory: Lungs are clear to auscultation, no wheezing no rales no rhonchi. Full and symmetrical air movement Cardiac: Regular rate and rhythm no murmurs no bruits Abdomen: Soft, nontender, good bowel tones, no flank pain Skin: Warm and dry, no rashes Neurologic: Grossly neurologically intact with no obvious asymmetries or abnormalities Extremities: No trauma, well perfused, compression socks in place with minimal edema Psych: Cooperative, appropriate insight and affect Course Orders Ordered: ED Orders 12/21/22 10:09 XR chest 1V Stat Measure peak expiratory flow ONCE RT Consult Eval and Treat NOW 12/21/22 10:10 Complete Blood Count AUTO DIFF Stat Comprehensive Metabolic Panel Stat Lactate (Lactic Acid) Stat NT-proBNP (BNP-Adult 18+) Stat Prothrombin Time INR Stat Troponin I Stat 12/21/22 10:17 EKG-12 Lead Stat Vital Signs Vital signs: Vital Signs - 8 hr 12/21/22 10:02 12/21/22 10:07 12/21/22 10:30 Temperature 98.3 F Pulse Rate 71 73 Respiratory Rate 15 Blood Pressure 124/71 108/72 Pulse Oximetry 98 99 Oxygen Delivery Method Room Air 12/21/22 10:30 12/21/22 11:00 12/21/22 11:00 Temperature Pulse Rate 72 67 Respiratory Rate 18 16 Blood Pressure 117/76 Pulse Oximetry 97 99 Oxygen Delivery Method 12/21/22 11:30 12/21/22 11:30 12/21/22 12:00 Temperature Pulse Rate 71 Respiratory Rate 14 Blood Pressure 111/83 118/80 Pulse Oximetry 99 Oxygen Delivery Method 12/21/22 12:00 12/21/22 12:30 12/21/22 12:30 Temperature Pulse Rate 71 71 Respiratory Rate 14 Blood Pressure 112/82 Pulse Oximetry 98 100 Oxygen Delivery Method 12/21/22 13:00 12/21/22 13:01 12/21/22 13:01 Temperature Pulse Rate 64 65 Respiratory Rate 12 11 L Blood Pressure 119/77 Pulse Oximetry 99 99 Oxygen Delivery Method 12/21/22 13:30 12/21/22 13:30 12/21/22 14:00 Temperature Pulse Rate 67 67 Respiratory Rate 21 20 Blood Pressure 118/86 Pulse Oximetry 99 99 Oxygen Delivery Method 12/21/22 14:30 12/21/22 15:00 Temperature Pulse Rate 61 67 Respiratory Rate 16 20 Blood Pressure Pulse Oximetry 98 99 Oxygen Delivery Method Medical Decision Making Lab Data 12/21/22 10:10 12/21/22 10:10 Labs: Lab Results 12/21/22 12/21/22 12/21/22 Range/Units 10:10 10:10 10:10 WBC 6.3 (4.5-11.0) X10^3/uL RBC 4.22 L (4.5-5.9) X10^6/uL Hgb 13.6 (13.5-17.5) g/dL Hct 39.4 L (41-53) % MCV 93.2 (80-100) fL MCH 32.1 (26-34) PG MCHC 34.4 (30-36) % RDW 12.3 (11.6-14.8) % Plt Count 229 (150-400) X10^3/uL Neut % (Auto) 61.6 (50-75) % Lymph % (Auto) 22.4 L (25-40) % [place] % (Auto) 9.0 (3-14) % Eos % (Auto) 6.6 H (2-4) % Baso % (Auto) 0.4 (0-2) % Neut # (Auto) 3900 (9725-0929) /uL Lymph # (Auto) 1400 (2315-8853) /uL [place] # (Auto) 600 (0-900) /uL Eos # (Auto) 400 (0-450) /uL Baso # (Auto) 0 (0-100) /uL PT 15.4 H (10.1-12.7) SECONDS INR 1.3 (0.9-1.3) Sodium 138 (137-145) mmol/L Potassium 4.1 (3.4-5.1) mmol/L Chloride 100 (98-107) mmol/L Carbon Dioxide 28 (22-32) mmol/L BUN 27 H (9-20) mg/dL Creatinine 1.19 (0.66-1.25) mg/dL Estimated GFR > 60 (>60) mL/min BUN/Creatinine Ratio 22.7 H (6-22) Glucose 73 L (80-110) mg/dL Lactate (0.7-2.1) mmol/L Calcium 8.5 (8.4-10.2) mg/dL Total Bilirubin 1.0 (0.2-1.3) mg/dL AST 32 (17-59) IU/L ALT 30 (<50) IU/L Alkaline Phosphatase 59 (38-126) U/L Troponin I < 0.012 (0.01-0.034) ng/mL NT-Pro-B Natriuret Pep 59 (<125) pg/mL Total Protein 7.1 (6.3-8.2) g/dL Albumin 4.3 (3.5-5.0) g/dL Globulin 2.8 (1.7-4.1) g/dL Albumin/Globulin Ratio 1.5 (1.0-2.8) 12/21/22 Range/Units 10:10 WBC (4.5-11.0) X10^3/uL RBC (4.5-5.9) X10^6/uL Hgb (13.5-17.5) g/dL Hct (41-53) % MCV (80-100) fL MCH (26-34) PG MCHC (30-36) % RDW (11.6-14.8) % Plt Count (150-400) X10^3/uL Neut % (Auto) (50-75) % Lymph % (Auto) (25-40) % [place] % (Auto) (3-14) % Eos % (Auto) (2-4) % Baso % (Auto) (0-2) % Neut # (Auto) (4985-6713) /uL Lymph # (Auto) (0684-3955) /uL [place] # (Auto) (0-900) /uL Eos # (Auto) (0-450) /uL Baso # (Auto) (0-100) /uL PT (10.1-12.7) SECONDS INR (0.9-1.3) Sodium (137-145) mmol/L Potassium (3.4-5.1) mmol/L Chloride (98-107) mmol/L Carbon Dioxide (22-32) mmol/L BUN (9-20) mg/dL Creatinine (0.66-1.25) mg/dL Estimated GFR (>60) mL/min BUN/Creatinine Ratio (6-22) Glucose (80-110) mg/dL Lactate 1.1 (0.7-2.1) mmol/L Calcium (8.4-10.2) mg/dL Total Bilirubin (0.2-1.3) mg/dL AST (17-59) IU/L ALT (<50) IU/L Alkaline Phosphatase (38-126) U/L Troponin I (0.01-0.034) ng/mL NT-Pro-B Natriuret Pep (<125) pg/mL Total Protein (6.3-8.2) g/dL Albumin (3.5-5.0) g/dL Globulin (1.7-4.1) g/dL Albumin/Globulin Ratio (1.0-2.8) MDM Narrative Medical decision making narrative: CC: 6 months of exertional dyspnea becoming progressively worse and more frequent, this is an acute problem with potential for life-threatening complication Complicating co-morbidities: Atrial fibrillation post ablation currently anticoagulated, depression Data collected from: patient, Social determinants of health that may influence the patients condition: Medical records reviewed: Patient's informatics analyst is Dr. Eva Mcgee, [facility] cardiology [phone] Differential considered: Exertional angina, primary pulmonary issue, significant anemia Exam documented above, pertinent findings include: Completely benign exam Lab Test results independently reviewed as above. Pertinent findings: CBC is unremarkable Chemistries are reassuring Troponin is undetectable Independently reviewed EKG sinus rhythm with minor sinus arrhythmia. Normal intervals, normal axis. No acute ischemic changes Imaging studies independently reviewed: Chest x-ray has no significant abnormalities Consultations: 3:50 Discussed with cardiology on-call for [facility] covering Dr. Mcgee. Brief review of records indicate that he had a normal nuclear medicine stress test in 2017. In October of 2019 he had a normal cardiac MRI. Discussion: 72-year-old gentleman with description over the last number of months of increasing exertional dyspnea. Concern is certainly for cardiac etiology, he has no prior history of known coronary disease. He did have an ablation and is currently on Xarelto. Followed by Cardiology at [facility]. Workup today is entirely reassuring he remains in sinus rhythm. With his progressive exertional dyspnea he will need outpatient follow-up. I was able to contact Cardiology at [facility], his primary informatics analyst's nurse will contact him to schedule close outpatient follow-up. At this point he is safe for home discharge. We clearly went over signs and symptoms of returning to the emergency department with very low threshold for returning should he have progressive exertional dyspnea that does not resolve or progresses into chest pain or tightness. Questions are answered and he is safe for discharge home Discharge Plan Departure Patient Disposition: Home Clinical Impression: Exertional dyspnea Instructions: DI for Angina Activity Restrictions/Additional Instructions: Thank you for coming in today, the decision to come to the emergency department was absolutely appropriate. Fortunately, your entire workup was very reassuring. I am not seeing any evidence of acute coronary syndrome, pulmonary edema psych suggest congestive heart failure, infection, collapsed lung, severe anemia or other explanations for the shortness of breath with activity. At this time, I am concerned that the shortness of breath is an ?anginal equivalent, similar to simply developing chest pain with exercise. I spoken with your Cardiology office and you should expect to hear from the office with follow-up appointment in the near future. You will need additional outpatient studies done to sort out the final diagnosis and reason for the exertional dyspnea that you are experiencing. In the meantime, if you do find that you are short of breath walking up hills or stairs, please do stop and let yourself catch her breath again. If the shortness of breath does not go away with rest, if it progresses to feeling sweaty or chest tightness palpitations or pain you need to return to the emergency department If you have not heard from your cardiology office by mid day tomorrow, please give them a call. Prescriptions: No Action simvastatin 10 mg tablet See Rx Instructions .ROUTE .COMPLEX Qty: 90 3RF Dose Instruction: TAKE ONE TABLET BY MOUTH ONE TIME DAILY AT BEDTIME Rx Instructions: TAKE ONE TABLET BY MOUTH ONE TIME DAILY AT BEDTIME duloxetine 60 mg capsule,delayed release(DR/EC) 60 mg PO DAILY Qty: 90 3RF hepatitis B virus vacc.rec(PF) 20 mcg/mL suspension 0.5 ml IM ONCE Qty: 0.5 2RF Rx Instructions: as a single dose in 3 dose series, per CDC immunization schedule multivitamin tablet 1 tab PO DAILY Patient Comments: Centrum Silver for Men pantoprazole 40 mg tablet,delayed release (DR/EC) 40 mg PO DAILY Xarelto 20 mg tablet 20 mg PO QPM loratadine [Allerclear] 10 mg tablet 10 mg PO DAILY Fish/Marine Oil (Medimont 3) 2,400 mg PO QPM cholecalciferol (vitamin D3) 5,000 unit capsule 5,000 unit PO DAILY Glucosamine/Chondroitin 2,400 mg PO QPM Probiotics 30 Billion 1 cap PO DAILY celecoxib 200 mg capsule 200 mg PO BID acetaminophen 325 mg tablet 1,000 mg PO BID ferrous sulfate 325 mg (65 mg iron) tablet 325 mg PO DAILY (DME) Respironics DreamStation 2 See Rx Instructions .Route .MEDSUPPLY Rx Instructions: CPAP Min: 8 Max: 16 DME: [place] Referrals: Melodie Rowley ARNP [Primary Care Provider] - Stand Alone Forms: Patient Portal/API
[2022-12-21 10:20] LABS: Add Manual Diff / Slide Review NO; Basophils Absolute Auto 0 /uL (0-100); Basophils Percent Auto 0.4 % (0-2); Eosinophils Absolute Auto 400 /uL (0-450); Eosinophils Percent Auto 6.6 % (2-4); Hematocrit 39.4 % (41-53); Hemoglobin 13.6 g/dL (13.5-17.5); Lymphocytes Absolute Auto 1400 /uL (1100-4500); Lymphocytes Percent Auto 22.4 % (25-40); Mean Corpuscular HGB Conc 34.4 % (30-36); Mean Corpuscular Hemoglobin 32.1 PG (26-34); Mean Corpuscular Volume 93.2 fL (80-100); Monocytes Absolute Auto 600 /uL (0-900); Neutrophils Absolute Auto 3900 /uL (1500-7000); Neutrophils Percent Auto 61.6 % (50-75); Platelet Count 229 X10^3/uL (150-400); Red Blood Cell Count 4.22 X10^6/uL (4.5-5.9); Red Cell Distribution Width 12.3 % (11.6-14.8); White Blood Cell Count 6.3 X10^3/uL (4.5-11.0)
[2022-12-21 10:26] LABS: INR 1.3 (0.9-1.3); Prothrombin Time 15.4 SECONDS (10.1-12.7)
[2022-12-21 10:31] LABS: Alanine Aminotransferase 30 IU/L (<50); Albumin 4.3 g/dL (3.5-5.0); Albumin Globulin Ratio 1.5 (1.0-2.8); Alkaline Phosphatase 59 U/L (38-126); Aspartate Aminotransferase 32 IU/L (17-59); BUN Creatinine Ratio 22.7 (6-22); Blood Urea Nitrogen 27 mg/dL (9-20); Calcium 8.5 mg/dL (8.4-10.2); Carbon Dioxide 28 mmol/L (22-32); Chloride 100 mmol/L (98-107); Estimated Glomerular Filt Rate > 60 mL/min (>60); Globulin 2.8 g/dL (1.7-4.1); Glucose 73 mg/dL (80-110); HEMOLYSIS < 15 (0-50); Lactate (Lactic Acid) 1.1 mmol/L (0.7-2.1); Potassium 4.1 mmol/L (3.4-5.1); Sodium 138 mmol/L (137-145); Total Protein 7.1 g/dL (6.3-8.2)
[2022-12-21 10:42] LABS: NT-proBNP (BNP-Adult 18+) 59 pg/mL (<125); Troponin I < 0.012 ng/mL (0.01-0.034)
--- NOTE | 2022-12-21 12:39 | PC.NURSE ---
Pt given snack and water on request with OK from Yady RAMOS
== END 2022-12-21 16:15 | disposition home or self-care (01) ==
PROVIDERS: Emergency Provider Emergency Medicine; PCP Nurse Practitioner
DX: R06.00 Dyspnea, unspecified (principal); R07.9 Chest pain, unspecified
CPT/HCPCS: 36415; 71045; 80053; 83605; 83880; 84484; 85025; 85610; 93005; 99284

== ENCOUNTER → 2023-01-15 07:42 | Outpatient (CLI) | payer MEDICARE, OTHER, SELFPAY ==
[2020-09-21 09:29] VITALS: BMI 29.8
--- NOTE | 2023-01-15 18:50 | DI.NM.S_ITS ---
DATE OF SERVICE: 01/15/2023 PROCEDURE: Exercise treadmill stress and rest myocardial perfusion imaging with gating to assess ejection fraction and regional wall motion. ORDERING PROVIDER: Melodie Rowley NP. INDICATIONS: The patient is a 72-year-old male with a history of atrial fibrillation with recent exertional dyspnea and atypical chest discomfort. CARDIAC STRESS: The patient was able to exercise for 5 minutes, 10 seconds on a standard Evan protocol suggesting moderately reduced exercise capacity with an KIRAN of +20%. He had a normal heart rate and blood pressure response to exercise, achieving a maximum heart rate of 146 BPM (98% of his predicted maximum). He had no chest discomfort or other anginal symptoms. His resting ECG is normal and there are no significant ST-segment shifts or arrhythmias with stress with the exception of occasional isolated PACs. At 4 minutes 24 seconds of exercise, at a heart rate of 140 BPM, 25.0 millicuries of technetium-99m Myoview was injected and then he was imaged 15 minutes later using a gated SPECT acquisition protocol. Earlier in the day while at rest, he had been injected with 8.4 millicuries of technetium-99m Myoview and was imaged 20 minutes later, again using a quantitated gated SPECT protocol. FINDINGS: 1. Raw data: There is fairly good myocardial tracer uptake without any obvious motion artifact. Lung/heart ratio is normal at 0.36 with a normal TID ratio of 0.83. 2. Quantitated gated SPECT: Post-stress ejection fraction is 67% without any focal wall motion abnormality. Resting ejection fraction is 68% with a high normal resting end-diastolic volume of 130 mL. 3. Myocardial perfusion imaging: Post-stress supine images shows a fairly uniform pattern of tracer activity without any obvious perfusion defects, supported by normal perfusion imaging in the prone position. The resting images show a similar perfusion pattern without any clear areas of improvement. IMPRESSION: 1. Normal myocardial perfusion study. 2. No evidence of myocardial ischemia or previous myocardial infarction. 3. Normal left ventricular systolic function with borderline elevated left ventricular volumes. 4. Moderately reduced exercise capacity without angina or ECG evidence of ischemia. He had occasional isolated PACs but no complex ectopy. Efrain Howard - RS/efe/nm doc#: [id number]/job#: [id number] dd: 01/15/2023 16:54:00 dt: 01/15/2023 18:33:00 DICTATING MD/COPIES TO: Bernard Mendez MD; Melodie Rowley NP COPIES MNE: SARANYA;
== END ==
PROVIDERS: PCP Nurse Practitioner; Referring Provider Nurse Practitioner; Visit Provider Nurse Practitioner
DX: R07.89 Other chest pain (principal); R06.09 Other forms of dyspnea; I48.91 Unspecified atrial fibrillation
CPT/HCPCS: 78452; 93017; A9502

== ENCOUNTER → 2023-01-23 15:30 | Outpatient (CLI) | payer MEDICARE, OTHER, SELFPAY ==
[2020-09-21 09:29] VITALS: BMI 29.8
--- NOTE | 2023-01-23 15:40 | DI.CT.S_ITS ---
PROCEDURE: CT CHEST WO CON INDICATIONS: surveillance, sarcoidosis TECHNIQUE: Noncontrast 5 mm thick sections acquired from the pulmonary apices to the posterior costophrenic angles. 1 mm lung window, 5 mm thick coronal and sagittal and 7 mm axial MIP reformats were then acquired. For radiation dose reduction, the following was used: automated exposure control, adjustment of mA and/or kV according to patient size. COMPARISON: [facility], CT, CT CHEST WO [facility], 10/25/2021, 10:53. FINDINGS: Image quality: Excellent. Lungs and pleura: No acute air space opacities. No pleural effusions or pneumothorax. Central and peripheral airways are patent and normal in caliber. Mediastinum: Heart size is normal. No pericardial effusion. Mildly enlarged pretracheal lymph node is redemonstrated, unchanged from the study dated October 25, 2021. No new mediastinal adenopathy. Thoracic aorta and central pulmonary arteries are normal in size. Esophagus is normal in caliber. No hiatal hernia. Bones and chest wall: No suspicious bony lesions. No vertebral body compression fractures. No axillary or supraclavicular adenopathy by size criteria. Thyroid gland unremarkable . Abdomen: Visualized upper abdominal solid organs and bowel loops appear normal in the absence of contrast. IMPRESSION: 1. Lungs are clear. No new mediastinal adenopathy or hilar adenopathy. Dictated by: Porsha Vides M.D. on 01/23/2023 at 16:45 Approved by: Porsha Vides M.D. on 01/23/2023 at 16:49
== END ==
PROVIDERS: PCP Nurse Practitioner; Referring Provider Nurse Practitioner; Visit Provider Nurse Practitioner
DX: D86.0 Sarcoidosis of lung (principal)
CPT/HCPCS: 71250

== ENCOUNTER → 2023-02-16 07:59 | Outpatient (CLI) | payer MEDICARE, OTHER, SELFPAY ==
[2020-09-21 09:29] VITALS: BMI 29.8
[2023-02-16 08:46] LABS: Hematocrit 37.5 % (41-53); Hemoglobin 12.9 g/dL (13.5-17.5)
[2023-02-16 09:07] LABS: Blood Urea Nitrogen 22 mg/dL (9-20); Calcium 9.1 mg/dL (8.4-10.2); Carbon Dioxide 29 mmol/L (22-32); Chloride 102 mmol/L (98-107); Estimated Glomerular Filt Rate > 60 mL/min (>60); Glucose 101 mg/dL (80-110); HEMOLYSIS < 15 (0-50); Potassium 4.1 mmol/L (3.4-5.1); Sodium 137 mmol/L (137-145)
[2023-02-16 09:43] LABS: Creatinine Urine Random 135.8 mg/dL
[2023-02-16 09:44] LABS: Protein (Total) Urine Random < 5 mg/dL (0-12); Protein Creatinine Ratio Urine 0.03 GRAM/24H
[2023-02-17 12:15] LABS: Parathyroid Hormone Int 31 pg/mL (15-65)
== END ==
PROVIDERS: PCP Nurse Practitioner; Referring Provider Student in an Organized Health Care Education/Training Program; Visit Provider Student in an Organized Health Care Education/Training Program
DX: N05.9 Unspecified nephritic syndrome with unspecified morphologic changes (principal); R80.9 Proteinuria, unspecified; D64.9 Anemia, unspecified; N25.81 Secondary hyperparathyroidism of renal origin
CPT/HCPCS: 36415; 80048; 82570; 83970; 84156; 85014; 85018

== ENCOUNTER → 2023-02-17 14:03 | Outpatient (CLI) | payer MEDICARE, OTHER, SELFPAY ==
[2020-09-21 09:29] VITALS: BMI 29.8
--- NOTE | 2023-02-17 14:15 | DI.MRI.S_ITS ---
PROCEDURE: MR LUMBAR SPINE WO CON INDICATIONS: Spinal stenosis, lumbar region with neurogenic cla TECHNIQUE: Noncontrast sagittal T1 spin echo and T2 fast echo, sagittal STIR, and T2 fast spin echo through the lumbar spine. In cases with scoliosis, additional coronal T2 fast spin echo may be performed. COMPARISON: [facility], MR, MR LUMBAR SPINE WO CON, 09/19/2022, 15:27. FINDINGS: Image quality: Excellent. Alignment and Curvature: Levocurvature of the lumbar spine. Mild retrolisthesis of L2 on L3 is stable. Bone Marrow: Marrow is of normal overall signal. Stable old L2 anterior wedge compression deformity. No acute vertebral body compression fractures. Spinal Cord: Conus medullaris terminates at the L1 level. Visualized cord demonstrates normal signal and size. Paraspinous Soft Tissues: No paravertebral masses. T12-L1: Mild disc desiccation height loss with small posterior disc bulge. Facet arthropathy and thickening of the ligamentum flavum. Stable moderate central canal stenosis. Stable moderate bilateral neural foraminal stenosis. L1-L2: Disc desiccation and height loss. Facet arthropathy and thickening of ligamentum flavum. Small disc bulge. Stable moderate central canal stenosis. Stable mild bilateral neural foraminal stenosis. L2-L3: Severe disc desiccation height loss. Posterior disc bulge. Facet arthropathy. Stable moderate central canal stenosis. Stable narrowing of the right lateral recess. Stable moderate bilateral neural foraminal stenosis. L3-L4: Disc desiccation and height loss with a posterior disc bulge. Facet arthropathy. Stable moderate to severe central canal stenosis. Stable moderate to severe central canal stenosis. L4-L5: Disc desiccation height loss. Posterior disc bulge. Facet arthropathy and thickening of ligamentum flavum. Moderate central canal stenosis is stable. Stable severe left and moderate right neural foraminal stenosis. L5-S1: Severe disc desiccation and height loss. Posterior disc bulge. Facet arthropathy. Stable mild central canal stenosis. Stable moderate right and moderate to severe left neural foraminal stenosis. Narrowing of the left lateral recess. IMPRESSION: 1. Multilevel degenerative changes of the lumbar spine are grossly similar in appearance compared to prior. Levoconvex curvature of the lumbar spine is stable. 2. Stable remote L2 anterior wedge compression deformity. No acute vertebral body compression deformities. Dictated by: Alan Granger M.D. on 02/19/2023 at 9:06 Approved by: Alan Granger M.D. on 02/19/2023 at 9:17
--- NOTE | 2023-02-17 14:15 | DI.RAD.S_ITS ---
PROCEDURE: XR LUMBAR SPINE 6V W BENDING INDICATIONS: Spinal stenosis, lumbar region with neurogenic cla TECHNIQUE: 6 views of the lumbar spine acquired, including flexion and extension views bilateral oblique views. COMPARISON: [facility], CR, XR LUMBAR SPINE 2-3V, 09/12/2022, 16:51. [facility], MR, MR LUMBAR SPINE WO CON, 09/19/2022, 15:27. [facility], MR, MR LUMBAR SPINE WO CON, 02/17/2023, 15:00. FINDINGS: Bones: 5 nonrib-bearing vertebrae are present. No acute appearing vertebral body compression fractures. There is a stable L2 anterior wedge deformity, with 50% loss of height anteriorly. No suspicious bony lesions. Moderate levoconvex lumbar scoliosis is seen. On the neutral image, the AP bony alignment is within normal limits. On flexion and extension views, there is limited range of motion observed, without abnormal subluxation. There is moderate to severe disc space narrowing seen at L2-L3 and L3-L4, with moderate disc space narrowing at L5-S1. Endplate irregularity and sclerosis are seen, which are worst at L2-L3 and L3-L4. Lower lumbar spine facet arthropathy is seen. On oblique images, no definite pars defects are seen. Soft tissues: Overlying bowel gas pattern is normal. No suspicious soft tissue calcifications. Pelvic phleboliths are incidentally noted. Cholecystectomy clips are seen. IMPRESSION: Limited range of motion, without abnormal subluxation. Moderate levoconvex lumbar scoliosis. There is a remote L2 anterior wedge deformity. Degenerative changes are seen, which are overall worst at L2-L3 and L3-L4. Dictated by: Roel Adam M.D. on 02/17/2023 at 15:14 Approved by: Roel Adam M.D. on 02/17/2023 at 15:16
== END ==
PROVIDERS: PCP Nurse Practitioner; Referring Provider Pain Medicine Pain Medicine; Visit Provider Pain Medicine Pain Medicine
DX: M48.062 Spinal stenosis, lumbar region with neurogenic claudication (principal); M41.9 Scoliosis, unspecified; M47.816 Spondylosis without myelopathy or radiculopathy, lumbar region; M43.8X6 Other specified deforming dorsopathies, lumbar region
CPT/HCPCS: 72114; 72148

== ENCOUNTER → 2023-07-09 07:50 | Outpatient (CLI) | payer MEDICARE, OTHER, SELFPAY ==
[2020-09-21 09:29] VITALS: BMI 29.8
[2023-07-09 08:59] LABS: Add Manual Diff / Slide Review NO; Basophils Absolute Auto 0 /uL (0-100); Basophils Percent Auto 0.8 % (0-2); Eosinophils Absolute Auto 400 /uL (0-450); Eosinophils Percent Auto 7.9 % (2-4); Hematocrit 38.4 % (41-53); Hemoglobin 13.3 g/dL (13.5-17.5); Lymphocytes Absolute Auto 1500 /uL (1100-4500); Lymphocytes Percent Auto 27.7 % (25-40); Mean Corpuscular HGB Conc 34.7 % (30-36); Mean Corpuscular Hemoglobin 31.6 PG (26-34); Monocytes Absolute Auto 400 /uL (0-900); Monocytes Percent Auto 7.2 % (3-14); Neutrophils Absolute Auto 3100 /uL (1500-7000); Neutrophils Percent Auto 56.4 % (50-75); Platelet Count 220 X10^3/uL (150-400); Red Blood Cell Count 4.22 X10^6/uL (4.5-5.9); Red Cell Distribution Width 12.7 % (11.6-14.8); White Blood Cell Count 5.6 X10^3/uL (4.5-11.0)
[2023-07-09 09:38] LABS: Alanine Aminotransferase 22 IU/L (<50); Albumin 4.2 g/dL (3.5-5.0); Albumin Globulin Ratio 1.4 (1.0-2.8); Alkaline Phosphatase 65 U/L (38-126); Aspartate Aminotransferase 27 IU/L (17-59); BUN Creatinine Ratio 21.6 (6-22); Bilirubin Total 1.1 mg/dL (0.2-1.3); Blood Urea Nitrogen 29 mg/dL (9-20); Calcium 9.7 mg/dL (8.4-10.2); Carbon Dioxide 28 mmol/L (22-32); Chloride 103 mmol/L (98-107); Cholesterol 165 mg/dL (140-199); Estimated Glomerular Filt Rate 57 mL/min (>60); Globulin 2.9 g/dL (1.7-4.1); Glucose 103 mg/dL (80-110); HDL Cholesterol 46 mg/dL (40-60); HEMOLYSIS < 15 (0-50); LDL Cholesterol Calculated 98 mg/dL (<100); Potassium 4.6 mmol/L (3.4-5.1); Sodium 139 mmol/L (137-145); Total Protein 7.1 g/dL (6.3-8.2); Triglycerides 105 mg/dL (35-150)
[2023-07-09 10:01] LABS: Prostate Specific Antigen Scrn 4.18 ng/mL (0.1-4.0)
[2023-07-09 10:03] LABS: TSH w/ Reflex to FT4 1.62 uIU/mL (0.47-4.68)
[2023-07-10 18:36] LABS: Microalbumin Urine Random < 0.6 mg/dL (0-1.6)
[2023-07-10 19:21] LABS: Creatinine Urine Random 111.7 mg/dL
== END ==
PROVIDERS: PCP Nurse Practitioner; Referring Provider Nurse Practitioner; Visit Provider Nurse Practitioner
DX: Z12.5 Encounter for screening for malignant neoplasm of prostate (principal); E78.00 Pure hypercholesterolemia, unspecified; N18.31 Chronic kidney disease, stage 3a; I48.0 Paroxysmal atrial fibrillation
CPT/HCPCS: 36415; 80053; 80061; 82043; 82570; 84443; 85025; G0103

== ENCOUNTER → 2023-08-20 15:06 | Outpatient (CLI) | payer MEDICARE, OTHER, SELFPAY ==
[2020-09-21 09:29] VITALS: BMI 29.8
[2023-08-20 16:01] LABS: Protein (Total) Urine Random < 5 mg/dL (0-12)
[2023-08-20 17:51] LABS: Hemoglobin 12.7 g/dL (13.5-17.5)
[2023-08-20 17:57] LABS: BUN Creatinine Ratio 19.3 (6-22); Blood Urea Nitrogen 21 mg/dL (9-20); Calcium 9.1 mg/dL (8.4-10.2); Carbon Dioxide 29 mmol/L (22-32); Chloride 103 mmol/L (98-107); Estimated Glomerular Filt Rate > 60 mL/min (>60); Glucose 108 mg/dL (80-110); HEMOLYSIS < 15 (0-50); Potassium 4.5 mmol/L (3.4-5.1); Sodium 138 mmol/L (137-145)
[2023-08-22 10:11] LABS: Parathyroid Hormone Int 33 pg/mL (15-65)
== END ==
LOC: LAB 15:09
PROVIDERS: PCP Nurse Practitioner; Referring Provider Student in an Organized Health Care Education/Training Program; Visit Provider Student in an Organized Health Care Education/Training Program
DX: N05.9 Unspecified nephritic syndrome with unspecified morphologic changes (principal); D70.9 Neutropenia, unspecified; D63.1 Anemia in chronic kidney disease; N25.81 Secondary hyperparathyroidism of renal origin; R80.9 Proteinuria, unspecified
CPT/HCPCS: 36415; 80048; 82570; 83970; 84156; 85014; 85018

== ENCOUNTER → 2023-08-23 16:01 | Outpatient (CLI) | payer MEDICARE, OTHER, SELFPAY ==
[2020-09-21 09:29] VITALS: BMI 29.8
[2023-08-23 19:27] LABS: Occult Blood 1 Negative (Negative); Occult Blood 2 Negative (Negative); Occult Blood 3 Positive (Negative)
== END ==
PROVIDERS: PCP Nurse Practitioner; Referring Provider Nurse Practitioner; Visit Provider Nurse Practitioner
DX: D64.9 Anemia, unspecified (principal)
CPT/HCPCS: 82270

== ENCOUNTER → 2023-09-20 08:39 | Outpatient (CLI) | payer MEDICARE, OTHER, SELFPAY ==
[2020-09-21 09:29] VITALS: BMI 29.8
--- NOTE | 2023-09-20 08:41 | DI.MRI.S_ITS ---
PROCEDURE: MR PELVIC PROSTATE PROTOCOL INDICATIONS: Elevated PSA TECHNIQUE: Coronal HASTE, axial T1 FSE with fat saturation, 3-plane nonbreath-hold T2 FSE. After the administration of contrast, dynamic axial, delayed axial and coronal VIBE or 2-D FLASH with fat saturation through the pelvis. Diffusion weighted imaging and ADC was performed. COMPARISON: None. FINDINGS: Image quality: Diffusion weighted and dynamic contrast enhanced images are diagnostic. Prostate: Gland size is 4.7 x 3.8 x 3.1 cm; ellipsoid gland volume 29 mL. No significant foci of intrinsic T1 hyperintensity to suggest hemorrhage. Multiple BPH nodules. Lesion 1: Location: Left apex/mid gland transition zone, on axial series 4, image 13 and coronal series 5, image 11. Size: 1.8 x 1.6 cm. T2W signal: Hypointense. DWI signal: Markedly hyperintense. ADC signal: Markedly hypointense. Enhancement: Yes. Extracapsular extension: No. No neurovascular involvement. PI-RADS score: 5 Lesion 2: Location: Left base gland peripheral zone, on axial series 4, image 11 and coronal series 5, image 13. Size: 0.8 x 0.7 cm. T2W signal: Hypointense. DWI signal: Mildly hyperintense. ADC signal: Heterogeneous Enhancement: Present Extracapsular extension: No. No neurovascular involvement. PI-RADS score: 4 Genitourinary system: Trabeculated appearance of the bladder wall. Small right bladder diverticulum. Distal ureters are non distended. Bowel and peritoneum: No pathologic free pelvic fluid. Inferior colon and small bowel loops are normal in caliber. Nodes and vessels: No pelvic or inguinal adenopathy by size criteria. Iliac vessels are normal in caliber. Soft tissues: Small fat containing left inguinal hernia. Bones: Marrow demonstrates normal overall signal, without lesions to suggest metastases. IMPRESSION: 1. Prominent prostate gland with multiple BPH nodules. Trabeculated urinary bladder suggesting bladder outlet obstruction. 2. Left apex/mid gland transitional zone lesion measuring 1.8 cm. PI-RADS 5. 3. Left base peripheral zone lesion measuring 0.8 cm. PI-RADS 4. 4. No enlarged lymph nodes. Dictated by: Elijah Solomon M.D. on 09/20/2023 at 11:42 Approved by: Elijah Solomon M.D. on 09/20/2023 at 12:06
== END ==
PROVIDERS: PCP Nurse Practitioner; Referring Provider Urology; Visit Provider Urology
DX: N40.2 Nodular prostate without lower urinary tract symptoms (principal); N32.89 Other specified disorders of bladder; R97.20 Elevated prostate specific antigen [PSA]; N32.3 Diverticulum of bladder; K40.90 Unilateral inguinal hernia, without obstruction or gangrene, not specified as recurrent; N42.9 Disorder of prostate, unspecified
CPT/HCPCS: 72197; A9579

== ENCOUNTER → 2023-10-15 14:13 | Outpatient (CLI) | payer MEDICARE, OTHER, SELFPAY ==
[2020-09-21 09:29] VITALS: BMI 29.8
--- NOTE | 2023-10-15 14:15 | DI.RAD.S_ITS ---
PROCEDURE: XR DEXA AXIAL SKELETON INDICATIONS: OSTEOPENIA OF LSPINE/LOW BACK PAIN COMPARISON: None. FINDINGS: Lumbar Spine: Bone mineral density 1.203 g/cm2, T score 1.4. Left Hip: Bone mineral density 0.815 g/cm2, T score -1.0. Left Femoral Neck: Bone mineral density 0.693 g/cm2, T score -1.4. Right Hip: Bone mineral density 0.844 g/cm2, T score -0.8. Right Femoral Neck: Bone mineral density 0.683 g/cm2, T score -1.5. Fracture Risk Calculation (when applicable): 10-year fracture risk of a major osteoporotic fracture 11% and of a hip fracture 2.9%. (T score greater or equal to -1.0 to: NORMAL) (T score from -1.1 to -2.4: OSTEOPENIA) (T score less than or equal to -2.5: OSTEOPOROSIS) IMPRESSION: Osteopenia Follow-up guidelines as follows: Osteoporosis: Consider a repeat DEXA and Vertebral Fracture Assessment (VFA) exam in 2 years or sooner if medically necessary, to reassess this patient's status. Osteopenia: Consider a repeat DEXA in 2-3 years to reassess this patient's status, or if there is a new clinical indication. Normal: Consider a repeat DEXA in 5 years or sooner, or if there is a new clinical indication. Dictated by: Sacha Friedman M.D. on 10/16/2023 at 22:43 Approved by: Sacha Friedman M.D. on 10/16/2023 at 22:45
--- NOTE | 2023-10-15 14:15 | DI.CT.S_ITS ---
PROCEDURE: CT LUMBAR SPINE WO CON INDICATIONS: OSTEOPENIA OF LSPINE/LOW BACK PAIN TECHNIQUE: Noncontrast 3 mm thick sections acquired from the T12 level to the sacrum. Sagittal and coronal reformats were constructed. For radiation dose reduction, the following was used: automated exposure control. COMPARISON: [facility], MR, MR LUMBAR SPINE WO CON, 02/17/2023, 15:00. [facility], CR, XR DEXA AXIAL SKELETON, 10/15/2023, 14:40. FINDINGS: Image quality: Excellent. Bones: There is mild levoscoliosis of lumbar spine with apex at L3 level. Chronic appearing superior endplate anterior wedge compression deformity at L2 level is again seen not significantly changed from prior study. No acute lumbar spine vertebral body compression fracture.. No suspicious lytic or blastic bony lesions. No pars defects. T12-L1: Degenerative endplate changes are noted. There is mild diffuse disc bulge and bilateral facet arthrosis causing mild central canal stenosis and left-sided neural foraminal narrowing. L1-L2: Degenerative endplate changes are seen and loss of disc height. Broad-based disc bulge and bilateral facet arthrosis causing moderate central canal stenosis and left-sided neural foraminal narrowing. L2-L3: Loss of disc height and degenerative endplate changes are seen. Broad-based disc bulge and bilateral facet arthrosis with mild central canal stenosis and moderate to severe bilateral neural foraminal narrowing. L3-L4: Vacuum disc phenomenon is seen. Loss of disc height and degenerative endplate changes are noted. Broad-based disc bulge and bilateral facet arthrosis causing severe central canal stenosis and bilateral neural foraminal narrowing. L4-L5: Vacuum disc phenomenon is seen. Broad-based disc bulge and bilateral facet arthrosis with hypertrophy of ligamentum flavum causing moderate to severe central canal stenosis and moderate to severe bilateral neural foraminal narrowing. L5-S1: Loss of disc height and degenerative endplate changes are seen. Vacuum disc phenomenon is noted. Diffuse disc bulge and bilateral facet arthrosis causing mild central canal stenosis and moderate to severe left-sided neural foraminal narrowing. [id number]-[id number]-[id number] right-sided neural foraminal narrowing is also seen. Soft tissues: No retroperitoneal masses or hematomas. Visualized aorta is normal in caliber. IMPRESSION: 1. Zewr-iy-[id number] levoscoliosis with apex at L3 level. Stable chronic appearing anterior wedge compression deformity at L2 level. No acute compression fracture . Stable grade 1 retrolisthesis at L2-3 level. No suspicious bony lesion. 2. Degenerative disc disease and bilateral facet arthrosis throughout lumbar spine causing various degrees of central canal stenosis and bilateral neural foraminal narrowing as described above, slightly worsened compared to previous MRI study. Dictated by: Bogdan Ferguson M.D. on 10/15/2023 at 16:09 Approved by: Bogdan Ferguson M.D. on 10/15/2023 at 16:57
== END ==
LOC: RAD 14:14
PROVIDERS: PCP Nurse Practitioner; Referring Provider Physician Assistant; Visit Provider Physician Assistant
DX: M51.36 Other intervertebral disc degeneration, lumbar region (principal); M85.89 Other specified disorders of bone density and structure, multiple sites; M51.37 Other intervertebral disc degeneration, lumbosacral region; M47.816 Spondylosis without myelopathy or radiculopathy, lumbar region; M47.817 Spondylosis without myelopathy or radiculopathy, lumbosacral region; M48.061 Spinal stenosis, lumbar region without neurogenic claudication; M48.07 Spinal stenosis, lumbosacral region; M43.16 Spondylolisthesis, lumbar region; M41.9 Scoliosis, unspecified; M43.8X6 Other specified deforming dorsopathies, lumbar region; M54.50 Low back pain, unspecified
CPT/HCPCS: 72131; 77080

== ENCOUNTER → 2023-10-30 10:58 | Outpatient (CLI) | payer MEDICARE, OTHER, SELFPAY ==
[2020-09-21 09:29] VITALS: BMI 29.8
[2023-10-30 12:32] LABS: BUN Creatinine Ratio 17.8 (6-22); Blood Urea Nitrogen 19 mg/dL (9-20); Estimated Glomerular Filt Rate > 60 mL/min (>60)
== END ==
PROVIDERS: PCP Nurse Practitioner; Referring Provider Urology; Visit Provider Urology
DX: C61 Malignant neoplasm of prostate (principal)
CPT/HCPCS: 36415; 82565; 84520

== ENCOUNTER → 2023-11-06 10:05 | Outpatient (CLI) | payer MEDICARE, OTHER, SELFPAY ==
[2020-09-21 09:29] VITALS: BMI 29.8
--- NOTE | 2023-11-06 10:06 | DI.NM.S_ITS ---
PROCEDURE: NM BONE SCAN WHOLE BODY RADIOPHARMACEUTICAL: 20.4 mCi Tc-99m MDP IV. INDICATIONS: New diagnosis prostate cancer TECHNIQUE: Delayed whole-body scintigrams were obtained approximately 3-4 hours after intravenous injection of radiotracer. Anterior and posterior views were acquired from vertex to feet. Additional left and right oblique views of the pelvis were obtained. COMPARISON: [facility], MR, MR PELVIC PROSTATE PROTOCOL, 09/20/2023, 9:18. MR, MR LUMBAR SPINE WO CON, 02/17/2023, 15:00. [facility], CT, CT LUMBAR SPINE WO CON, 10/15/2023, 15:08. [facility], CR, XR PELVIS WITH LATERAL HIP LEFT, 10/16/2023, 10:40. [facility], CT, CT ABDOMEN PELVIS W CON, 11/06/2023, 10:20. FINDINGS: No lesions are identified in skull, sternum, clavicles, scapulae, ribs, bony pelvis, and visualized shafts of the long bones. There are foci of increased uptake in the lumbar spine most likely secondary to degenerative disc and facet disease; early metastasis to spine could be obscured by degenerative changes. There are foci of increased periarticular activity most pronounced in the area of the left acromioclavicular joint and right knee, compatible with degenerative/arthritic changes. There is left knee arthroplasty. IMPRESSION: No definitive scintigraphic findings to suggest osseous metastasis. Dictated by: Joy Rodriguez M.D. on 11/06/2023 at 15:10 Approved by: Joy Rodriguez M.D. on 11/07/2023 at 9:25
--- NOTE | 2023-11-06 10:15 | DI.CT.S_ITS ---
PROCEDURE: CT ABDOMEN PELVIS W CON INDICATIONS: New diagnosis prostate cancer TECHNIQUE: After the administration of intravenous contrast, axial sections acquired from the lung bases to the pubic symphysis. Coronal and sagittal reformats were performed. For radiation dose reduction, the following was used: automated exposure control, adjustment of mA and/or kV according to patient size. COMPARISON: [facility], , MR PELVIC PROSTATE PROTOCOL, 09/20/2023, 9:18. FINDINGS: Image quality: Diagnostic. Lower Chest: Small hiatal hernia. ABDOMEN: Liver: No solid mass. Gallbladder: Absent. Biliary ducts: No biliary dilation. Pancreas: No ductal dilation. Spleen: Size is within normal limits. Adrenal Glands: No adrenal nodules. Kidneys and Ureters: No hydronephrosis. No solid mass. No complex renal cystic lesion which requires follow up. Stomach and Bowel: Normal colonic caliber, without significant wall thickening. Peritoneum: No abnormal intraperitoneal fluid. No free air. Ventral Wall: No significant ventral hernia. Small umbilical hernia containing fat. Abdominal Nodes: No retroperitoneal or mesenteric adenopathy by size criteria. Vessels: Aorta and inferior vena cava are normal in size. PELVIS: Pelvic Organs: Prostatomegaly. Heterogeneous enhancement of the prostate. Bladder: No bladder wall thickening, accounting for underdistention. Pelvic Nodes: No enlarged lymph nodes. Miscellaneous: No inguinal hernias are seen. Bones: No aggressive osseous abnormality. Degenerative disc disease of the lumbar spine. Anterior compression deformity of the L2 vertebral body. Mild convex left scoliosis, centered at L2-3. IMPRESSION: Heterogeneous enhancement of the prostate. No definite evidence of metastatic disease, but consider correlation with PMSA to exclude micro metastases. Dictated by: Truman Owen M.D. on 11/06/2023 at 11:55 Approved by: Truman Owen M.D. on 11/06/2023 at 12:01
== END ==
PROVIDERS: PCP Nurse Practitioner; Referring Provider Urology; Visit Provider Urology
DX: C61 Malignant neoplasm of prostate (principal); R97.20 Elevated prostate specific antigen [PSA]; K44.9 Diaphragmatic hernia without obstruction or gangrene; K42.9 Umbilical hernia without obstruction or gangrene; M51.36 Other intervertebral disc degeneration, lumbar region; M41.9 Scoliosis, unspecified; Z90.49 Acquired absence of other specified parts of digestive tract
CPT/HCPCS: 74177; 78306; A9503; Q9967

== ENCOUNTER 2023-11-26 08:13 | Day surgery (SDC) | payer MEDICARE, OTHER, SELFPAY ==
[2023-11-06 13:02] VITALS: BMI 29.8
--- NOTE | 2023-11-26 | PATH_ITS ---
[facility] Accession Number: [id number] No. of containers..03 Tissue . 01 Material submitted: . PART A: gastrointestinal site - ANTRUM PART B: gastrointestinal site - BODY PART C: esophagus - DISTAL ESOPHAGUS . 01 Diagnosis: A. Stomach, antrum, biopsy: Gastric mucosa with unremarkable histology. No H. Pylori like organisms identified (on the H/E- stained sections). Negative for gastritis, intestinal metaplasia, dysplasia, or malignancy. . -- B. stomach, body, biopsy: Oxyntic gastric mucosa with histologic features suggestive of (proton pump inhibitor PPI- like effect). No H. Pylori like organisms identified (on the H/E- stained sections). Negative for gastritis, intestinal metaplasia, dysplasia, or malignancy. . -- C. Esophagus, distal, biopsy: Columnar epithelium with intestinal metaplasia, (see comment) Squamous epithelium, with increased intraepithelial eosinophils (up to 4 eosinophils in one high power filed) and acute inflammation compatible with patient history of reflux. Negative for dysplasia or malignancy . 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 . TXN 11/28/2023 [facility]8 Local . 01 Electronically signed: . Tawaniyah Lynne MD, Pathologist NPI- [id number] . 01 Gross description: . Part A: ANTRUM: Received in formalin is 1 fragment(s) of vang, soft tissue measuring 0.3 x 0.2 x 0.2 cm submitted entirely in 1 cassette(s) Part B: BODY: Received in formalin are 3 fragment(s) of vang, soft tissue measuring 0.1 x 0.1 x 0.1 cm to 0.3 x 0.3 x 0.2 cm submitted entirely in 1 cassette(s) Part C: DISTAL ESOPHAGUS: Received in formalin are 2 fragment(s) of vang, soft tissue measuring 0.1 x 0.1 x 0.1 cm to 0.2 x 0.2 x 0.2 cm submitted entirely in 1 cassette(s) /KEVIN 11/27/2023 0111 Local . 01 Pathologist provided ICD-10: K22.70 . 01 CPT . 208322, [id number], [id number] Specimen Comment: A courtesy copy of this report has been sent to [phone] Performed at: [address] [id number] MD Rodrigo Hart MD Phone: [phone]
--- NOTE | 2023-11-26 08:36 | PM.HP.1 ---
History of Present Illness History of Present Illness Date Patient Seen: 11/26/23 Time Patient Seen: 08:37 Chief complaint: EGD Narrative: 73-year-old male with refractory reflux symptoms here for EGD. I reviewed the recent office note from October of this year with . He has improved with b.i.d. PPI but still has frequent breakthrough symptoms. 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 Pre-op examination Iliotibial band syndrome, left leg Gluteal tendinitis of left buttock Osteoarthritis of left hip Trochanteric bursitis of left hip Torn rotator cuff Biceps rupture, proximal Chronic right shoulder pain Short leg syndrome, right, acquired Plantar fasciitis, bilateral Erectile dysfunction Somatic dysfunction of lower extremity Sacral region somatic dysfunction Pelvic somatic dysfunction Segmental and somatic dysfunction of abdomen and other regions Lumbar region somatic dysfunction Stiff back Greater trochanteric bursitis of right hip Short leg syndrome, left, acquired Encounter for HCV screening test for high risk patient Chronic left hip pain Pain Other skilled nursing (current) drug therapy Obstructive sleep apnea Bilateral lower extremity edema Chronic knee pain Thoracic lymphadenopathy CKD (chronic kidney disease), stage II (~01/2019) Hypotension Right knee DJD Biceps tendonitis on right Rotator cuff impingement syndrome of right shoulder Seasonal allergies Vision disorder Plantar warts (~1966) Sleep apnea (~2014) Seasonal allergies (~1959) Abnormal chest x-ray (~2017) Post traumatic stress disorder (PTSD) Depression Anxiety (~2001) Arthritis (~2014) Compression fracture (~2005) Shoulder pain, right (~2018) Fractures Mumps (~1960) Measles (~1961) Chicken pox (~1959) Tinnitus (~2014) Hearing loss (~2014) Cataracts, bilateral (~2014) GERD (gastroesophageal reflux disease) (~2009) Colon polyps (~2009) Low testosterone (~2016) Atrial fibrillation (~2017) Sarcoidosis (~2018) Skin cancer (~2018) Forgetfulness Surgical History History of circumcision Hx of laparoscopy History of knee replacement H/O cardiac radiofrequency ablation (~2016) Anesthesia History of tonsillectomy (~195) History of vasectomy (~1993) History of ankle surgery (~2005) History of cholecystectomy (~2009) History of eye surgery (~2015) Retinal tear of left eye (~2017) Melanoma (~2017) Family History Father Mental health problem Mother Lung cancer Depression Alcoholism Brother Overweight Type II diabetes mellitus Hyperlipidemia Thyroid disorder Grandfather Diabetes mellitus Grandmother Hyperlipidemia Grandfather Cancer Grandmother Breast cancer Hypertension Cancer Family/Other Overweight Social History marital status: number of children: 1 household members: spouse Smoking Status: Never smoker second hand exposure: No alcohol intake: current substance use type: does not use caffeine: Yes Meds Home Medications and Allergies Home Medications Medication Instructions Recorded Confirmed Type Fish/Marine Oil ([place] 3) 2,400 mg PO QPM 11/07/18 10/25/23 History Glucosamine/Chondroitin 2,400 mg PO QPM 11/07/18 10/25/23 History Probiotics 30 Billion 1 cap PO DAILY 11/07/18 10/25/23 History cholecalciferol (vitamin D3) 125 5,000 unit PO DAILY 11/07/18 10/25/23 History mcg (5,000 unit) capsule loratadine 10 mg tablet 10 mg PO DAILY 11/07/18 10/25/23 History (Allerclear) multivitamin 1 tab PO DAILY 11/07/18 10/25/23 History pantoprazole 40 mg tablet,delayed 40 mg PO DAILY 11/07/18 10/25/23 History release rivaroxaban 20 mg tablet (Xarelto) 20 mg PO QPM 11/07/18 10/25/23 History Respironics DreamStation 2 09/06/21 10/25/23 History ferrous sulfate 325 mg (65 mg 325 mg PO DAILY 09/06/21 10/25/23 History iron) tablet acetaminophen 325 mg tablet 1,000 mg PO BID 04/12/22 10/25/23 History nitroglycerin 0.4 mg sublingual 0.4 mg sublingual Q5M PRN chest 12/25/22 10/25/23 Rx tablet pain #30 tabs simvastatin 10 mg tablet See Rx Instructions .Route 01/01/23 10/25/23 Rx .COMPLEX #90 tabs CBD topical PRN Lt SI joint pain 08/15/23 10/25/23 History ginkgo biloba leaf extract 60 mg 60 mg PO BID Anti-anxiety, 08/15/23 10/25/23 History capsule positive energy semaglutide 0.25 mg or 0.5 mg (2 0.25 mg (0.368 mL) SUBCUT QWEEK #3 08/16/23 10/25/23 Rx mg/3 mL) subcutaneous pen injector mL Semaglutide 1mg/ml See Rx Instructions .Route 08/23/23 10/25/23 Rx .COMPLEX #6 mL ascorbate calcium (vitamin C) 500 500 mg PO DAILY 09/12/23 10/25/23 History mg tablet calcium carbonate (Tums) 200 mg PO BID 09/12/23 10/25/23 History famotidine 20 mg tablet 20 mg PO BEDTIME 09/12/23 10/25/23 History levofloxacin 500 mg tablet 500 mg PO DAILY #3 tabs 09/26/23 10/25/23 Rx Insulin Syringe #20 ea 10/15/23 10/25/23 Rx duloxetine 20 mg capsule,delayed 60 mg (3 x 20 mg) PO BEDTIME #270 10/25/23 10/25/23 Rx release caps Allergies Allergy/AdvReac Type Severity Reaction Status Date / Time influenza A (H5N1) virus Allergy Severe Encephaliti Verified 11/26/23 08:29 vaccine mo s Sulfa (Sulfonamide Allergy Unknown my mother Verified 11/26/23 08:29 Antibiotics) told me about it and I have never taken it. horseradish AdvReac Severe Diarrhea Verified 11/26/23 08:29 Review of Systems Review of Systems ROS: Yes All systems reviewed with the patient and are negative except as otherwise documented Exam Const General: cooperative [facility] Head: normal to inspection Eyes General: appearance normal, both eyes and all related structures Neck Neck: normal visual inspection Chest Chest: normal inspection of the chest Resp Effort & Inspection: normal respiratory effort Cardio Rate: regular rate GI Inspection: normal to inspection Skin General: no rashes or lesions noted Neuro General: patient alert and patient awake Extrem General: normal to inspection and no pedal edema Psych Appearance: grossly normal Assessment & Plan Assessment & Plan narrative: 73-year-old male with refractory reflux. EGD is pursued today.
[2023-11-26 08:41] VITALS: BP 120/73; PULSE 71; RESP 20; TEMP 36.2; O2SAT 98
[2023-11-26] MEDS: LACTATED RINGERS 1,000 ML 42 ML IV (08:45)
--- NOTE | 2023-11-26 09:04 | PM.PREOP ---
Pre-operative Note Interval Note History & Physical reviewed/Exam performed by Physician: Yes Changes to H&P: Yes ASA Class (for procedural sedation): II
--- NOTE | 2023-11-26 09:36 | PM.OP.EGD ---
Operative Date/Time/Diagnoses Date of procedure: 11/26/23 Time of procedure: 09:39 Pre-op diagnosis: Refractory reflux symptoms Post-op diagnosis: same Procedure & Clinicians Study performed: EGD with biopsies Same procedure as scheduled: Yes Indications: Refractory reflux symptoms Surgeon: Jose Lieberman Procedure Notes SCOAP/Timeout: Done Procedure in detail: After the risks and benefits were explained, written and verbal informed consent was obtained. The patient was brought into the procedure room and placed into the left lateral decubitus position. Please see anesthesia notes for sedation details. The scope was introduced into the mouth through the bite block and advanced under direct visualization to the 2nd portion of the duodenum. The scope was slowly withdrawn carefully examining the mucosa for any defects or lesions. Retroflexed views were accomplished in the stomach. The stomach was decompressed, the scope was then removed from the patient who tolerated the procedure well. Sedation minutes: 12 Complications: none Impression: 1. Duodenum: This appeared normal from the bulb through to the 2nd portion. 2. Stomach: No ulcers no mass lesions and no outlet obstruction. Retroflexed views of the LES disclosed hiatal hernia with a Hill valve grade 3. There was a mild diffuse gastropathy throughout. In the antrum this was characterized by some erythema of the mucosa and more proximally there was a diffuse nodularity to the mucosa. Biopsies were taken from the antrum and gastric body and submitted separately for exclusion of H pylori and/or other histopathology. 3. Esophagus: The squamocolumnar junction appeared to extend slightly up from the gastroesophageal junction but it was difficult to determine whether this is Barretts or part of the LA grade C ulcerative esophagitis process. I did not see any stricture nor any mass lesion. The GE junction was at 36 cm from the incisors and the diaphragmatic pinchcock was at 40 cm from the incisors. Couple of biopsies were taken from the distal esophagus for histopathologic analysis. No additional esophageal pathology throughout. Endoscopic diagnosis 1. 4 cm sliding hiatal hernia 2. LA grade C ulcerative esophagitis 3. Gastropathy Post-procedure Plan for aftercare: 1. Await histology. 2. Continue 40 mg pantoprazole twice daily. This should be taken 30-60 minutes before the 1st and last meal of the day on a relatively empty stomach. 3. The patient is encouraged to stay upright for 4 hours after any meal. 5. It might be prudent to consider slight elevation in the head of the bed. 6. Consider gastric emptying study. Underlying gastroparesis could be a reasonable explanation for the refractory reflux. 7. Follow up in GI clinic; contingent on the above, further evaluation with esophageal pH and manometry might be appropriate (on b.i.d. PPI) as well. Disposition: PACU
[2023-11-26 09:37] VITALS: BP 100/66; PULSE 79; RESP 14; TEMP 36.1; O2SAT 94
[2023-11-26 09:42] VITALS: BP 98/70; PULSE 79; RESP 15; O2SAT 95
[2023-11-26 09:48] VITALS: BP 99/80; PULSE 71; RESP 16; O2SAT 97
[2023-11-26 09:49] VITALS: BP 101/57; PULSE 74; RESP 17; TEMP 36.1; O2SAT 96
== END 2023-11-26 10:05 | disposition home or self-care (01) ==
PROVIDERS: PCP Nurse Practitioner; Referring Provider Internal Medicine Gastroenterology; Visit Provider Internal Medicine Gastroenterology
PROC: 0DJ08ZZ Inspection of Upper Intestinal Tract, Via Natural or Artificial Opening Endoscopic (ICD-10-PCS; CPT 43235; principal; 2023-11-26 09:00)
DX: K21.9 Gastro-esophageal reflux disease without esophagitis (principal); K44.9 Diaphragmatic hernia without obstruction or gangrene; K31.9 Disease of stomach and duodenum, unspecified; K22.70 Barrett's esophagus without dysplasia
CPT/HCPCS: 43239; J2704

== ENCOUNTER → 2024-01-29 09:04 | Outpatient (CLI) | payer MEDICARE, OTHER, SELFPAY ==
[2023-11-06 13:02] VITALS: BMI 29.8
[2024-01-29 11:53] LABS: Prostate Specific Antigen 2.31 ng/mL (0.10-4.00)
== END ==
PROVIDERS: PCP Nurse Practitioner; Referring Provider Urology; Visit Provider Urology
DX: C61 Malignant neoplasm of prostate (principal); R97.20 Elevated prostate specific antigen [PSA]
CPT/HCPCS: 36415; 84153

== ENCOUNTER → 2024-03-11 10:43 | Outpatient (CLI) | payer MEDICARE, OTHER, SELFPAY ==
[2024-03-10 11:54] VITALS: BMI 29.8
[2024-03-11 12:22] LABS: Erythrocyte Sedimentation Rate 10 MM/HR (0-15)
[2024-03-11 12:34] LABS: C-Reactive Protein Quant < 0.5 mg/dL (<1.0)
[2024-03-11 13:00] LABS: Appearance Urine UA CLEAR; Bilirubin Urine UA NEGATIVE (NEGATIVE); Color Urine UA YELLOW; Glucose Urine UA NEGATIVE (Negative); Ketones Urine UA NEGATIVE (NEGATIVE); Leukocyte Esterase Urine UA NEGATIVE (NEGATIVE); Nitrite Urine UA NEGATIVE (Negative); Occult Blood Urine UA NEGATIVE (Negative); Protein Urine UA NEGATIVE (Negative); Specific Gravity Urine UA <=1.005 (1.000-1.035); Urobilinogen Urine UA 0.2 E.U./dL (0.2)
[2024-03-11 13:08] LABS: Bacteria Urine Occasional (0-1); Culture Indicated Urine Cult Not Indicated; RBC Urine None Seen (0-5/HPF); Squamous Epithelial Cell Urine 0-1 /HPF (0-5/HPF); Urine Volume 10mL (spun); WBC Urine 0-1/HPF (0-5/HPF)
== END ==
PROVIDERS: Urology; PCP Family Medicine; Referring Provider Family Medicine; Visit Provider Family Medicine
DX: D86.0 Sarcoidosis of lung (principal); I73.00 Raynaud's syndrome without gangrene; R39.9 Unspecified symptoms and signs involving the genitourinary system
CPT/HCPCS: 36415; 81001; 85651; 86038; 86140

== ENCOUNTER → 2024-03-13 09:56 | Outpatient (CLI) | payer MEDICARE, OTHER, SELFPAY ==
[2024-03-10 11:54] VITALS: BMI 29.8
[2024-03-13 11:29] LABS: Prostate Specific Antigen 2.19 ng/mL (0.10-4.00)
== END ==
LOC: LAB 09:57
PROVIDERS: PCP Family Medicine; Referring Provider Urology; Visit Provider Urology
DX: R39.9 Unspecified symptoms and signs involving the genitourinary system (principal)
CPT/HCPCS: 84153

== ENCOUNTER → 2024-03-19 10:54 | Outpatient (CLI) | payer MEDICARE, OTHER, SELFPAY ==
[2024-03-10 11:54] VITALS: BMI 29.8
== END ==
PROVIDERS: PCP Family Medicine; Visit Provider Urology
DX: R39.9 Unspecified symptoms and signs involving the genitourinary system (principal)
CPT/HCPCS: 87086

== ENCOUNTER → 2024-04-22 09:30 | Outpatient (CLI) | payer MEDICARE, OTHER, SELFPAY ==
[2024-03-10 11:54] VITALS: BMI 29.8
[2024-04-22 11:17] LABS: Prostate Specific Antigen 0.544 ng/mL (0.10-4.00)
== END ==
PROVIDERS: PCP Family Medicine; Referring Provider Urology; Visit Provider Urology
DX: C61 Malignant neoplasm of prostate (principal)
CPT/HCPCS: 36415; 84153

== ENCOUNTER → 2024-04-30 09:14 | Outpatient (CLI) | payer MEDICARE, OTHER, SELFPAY ==
[2024-03-10 11:54] VITALS: BMI 29.8
[2024-04-30 09:58] LABS: Add Manual Diff / Slide Review NO; Basophils Absolute Auto 0 /uL (0-100); Basophils Percent Auto 0.4 % (0-2); Eosinophils Absolute Auto 300 /uL (0-450); Eosinophils Percent Auto 6.7 % (2-4); Hematocrit 34.2 % (41-53); Hemoglobin 11.8 g/dL (13.5-17.5); Lymphocytes Absolute Auto 800 /uL (1100-4500); Lymphocytes Percent Auto 20.2 % (25-40); Mean Corpuscular HGB Conc 34.4 % (30-36); Mean Corpuscular Hemoglobin 32.6 PG (26-34); Mean Corpuscular Volume 94.7 fL (80-100); Monocytes Absolute Auto 300 /uL (0-900); Monocytes Percent Auto 6.4 % (3-14); Neutrophils Absolute Auto 2800 /uL (1500-7000); Neutrophils Percent Auto 66.3 % (50-75); Platelet Count 192 X10^3/uL (150-400); Red Blood Cell Count 3.61 X10^6/uL (4.5-5.9); Red Cell Distribution Width 12.9 % (11.6-14.8); White Blood Cell Count 4.2 X10^3/uL (4.5-11.0)
[2024-04-30 10:38] LABS: Alanine Aminotransferase 25 IU/L (<50); Albumin 3.8 g/dL (3.5-5.0); Albumin Globulin Ratio 1.7 (1.0-2.8); Alkaline Phosphatase 76 U/L (38-126); Aspartate Aminotransferase 32 IU/L (17-59); BUN Creatinine Ratio 15.1 (6-22); Bilirubin Total 0.8 mg/dL (0.2-1.3); Blood Urea Nitrogen 16 mg/dL (9-20); Carbon Dioxide 26 mmol/L (22-32); Chloride 104 mmol/L (98-107); Estimated Glomerular Filt Rate > 60 mL/min (>60); Globulin 2.2 g/dL (1.7-4.1); Glucose 100 mg/dL (80-110); HEMOLYSIS < 15 (0-50); Potassium 4.3 mmol/L (3.4-5.1); Sodium 138 mmol/L (137-145)
== END ==
PROVIDERS: PCP Family Medicine
DX: K22.70 Barrett's esophagus without dysplasia (principal)
CPT/HCPCS: 36415; 80053; 85025

== ENCOUNTER → 2024-07-19 09:32 | Outpatient (CLI) | payer MEDICARE, OTHER, SELFPAY ==
[2024-03-10 11:54] VITALS: BMI 29.8
[2024-07-19 12:03] LABS: Prostate Specific Antigen 0.162 ng/mL (0.10-4.00)
== END ==
LOC: LAB 09:33
PROVIDERS: PCP Family Medicine; Referring Provider Urology; Visit Provider Urology
DX: R97.20 Elevated prostate specific antigen [PSA] (principal)
CPT/HCPCS: 36415; 84153

== ENCOUNTER → 2024-09-16 11:52 | Outpatient (CLI) | payer MEDICARE, OTHER, SELFPAY ==
[2024-03-10 11:54] VITALS: BMI 29.8
[2024-09-16 14:09] LABS: Prostate Specific Antigen 0.122 ng/mL (0.10-4.00)
== END ==
LOC: LAB 11:55
PROVIDERS: PCP Family Medicine; Referring Provider Radiology Radiation Oncology; Visit Provider Radiology Radiation Oncology
DX: C61 Malignant neoplasm of prostate (principal)
CPT/HCPCS: 36415; 84153

== ENCOUNTER → 2024-10-16 08:02 | Outpatient (CLI) | payer MEDICARE, OTHER, SELFPAY ==
[2024-03-10 11:54] VITALS: BMI 29.8
[2024-10-16 08:40] LABS: Add Manual Diff / Slide Review NO; Basophils Absolute Auto 0 /uL (0-100); Basophils Percent Auto 0.9 % (0-2); Eosinophils Absolute Auto 300 /uL (0-450); Hemoglobin 12.1 g/dL (13.5-17.5); Lymphocytes Absolute Auto 1000 /uL (1100-4500); Lymphocytes Percent Auto 21.6 % (25-40); Mean Corpuscular HGB Conc 34.7 % (30-36); Mean Corpuscular Hemoglobin 32.8 PG (26-34); Mean Corpuscular Volume 94.5 fL (80-100); Monocytes Absolute Auto 300 /uL (0-900); Monocytes Percent Auto 6.3 % (3-14); Neutrophils Absolute Auto 2900 /uL (1500-7000); Neutrophils Percent Auto 64.2 % (50-75); Platelet Count 190 X10^3/uL (150-400); Red Cell Distribution Width 12.6 % (11.6-14.8); White Blood Cell Count 4.5 X10^3/uL (4.5-11.0)
[2024-10-16 08:56] LABS: Alanine Aminotransferase 34 IU/L (<50); Albumin 4.1 g/dL (3.5-5.0); Albumin Globulin Ratio 1.9 (1.0-2.8); Alkaline Phosphatase 69 U/L (38-126); Aspartate Aminotransferase 30 IU/L (17-59); BUN Creatinine Ratio 19.8 (6-22); Bilirubin Total 1.1 mg/dL (0.2-1.3); Blood Urea Nitrogen 20 mg/dL (9-20); Calcium 9.1 mg/dL (8.4-10.2); Carbon Dioxide 26 mmol/L (22-32); Chloride 104 mmol/L (98-107); Cholesterol 150 mg/dL (140-199); Estimated Glomerular Filt Rate > 60 mL/min (>60); Globulin 2.2 g/dL (1.7-4.1); Glucose 91 mg/dL (70-99); HDL Cholesterol 56 mg/dL (40-60); HEMOLYSIS < 15 (0-50); LDL Cholesterol Calculated 79 mg/dL (<100); Potassium 4.1 mmol/L (3.4-5.1); Sodium 137 mmol/L (137-145); Total Protein 6.3 g/dL (6.3-8.2); Triglycerides 75 mg/dL (35-150)
[2024-10-16 09:02] LABS: HEMOLYSIS < 15 (0-50); Iron 110 ug/dL (49-181)
[2024-10-16 09:13] LABS: Percent Iron Saturation 41 % (20-50); Total Iron Binding Capacity 268 ug/dL (261-462); Transferrin 207 mg/dL (206-381)
[2024-10-16 09:27] LABS: Prostate Specific Antigen 0.164 ng/mL (0.10-4.00)
[2024-10-16 09:31] LABS: Ferritin 71 ng/mL (18-464)
[2024-10-16 09:36] LABS: TSH w/ Reflex to FT4 1.59 uIU/mL (0.47-4.68)
[2024-10-16 09:45] LABS: Vitamin B12 Reflex MMA if <400 539 pg/mL (239-931)
[2024-10-16 10:13] LABS: Creatinine Urine Random 98.69 mg/dL
[2024-10-16 10:20] LABS: Microalbumin Urine Random < 0.6 mg/dL (0-1.6)
== END ==
PROVIDERS: PCP Family Medicine; Referring Provider Urology; Visit Provider Urology
DX: Z92.3 Personal history of irradiation (principal); I48.0 Paroxysmal atrial fibrillation; N18.31 Chronic kidney disease, stage 3a; C61 Malignant neoplasm of prostate; K22.70 Barrett's esophagus without dysplasia; M16.12 Unilateral primary osteoarthritis, left hip; D86.0 Sarcoidosis of lung; M70.62 Trochanteric bursitis, left hip; R35.1 Nocturia
CPT/HCPCS: 36415; 80053; 80061; 82043; 82570; 82607; 82728; 83540; 83550; 84153; 84443; 85025

== ENCOUNTER → 2024-11-05 12:59 | Outpatient (CLI) | payer MEDICARE, OTHER, SELFPAY ==
[2024-03-10 11:54] VITALS: BMI 29.8
--- NOTE | 2024-11-05 13:02 | DI.CT.S_ITS ---
PROCEDURE: CT CHEST WO CON INDICATIONS: sarcoidosis follow up TECHNIQUE: Noncontrast 5 mm thick sections acquired from the pulmonary apices to the posterior costophrenic angles. 1 mm lung window, 5 mm thick coronal and sagittal and 7 mm axial MIP reformats were then acquired. For radiation dose reduction, the following was used: automated exposure control, adjustment of mA and/or kV according to patient size. COMPARISON: [facility], CT, CT CHEST WO CON, 01/23/2023, 15:40. FINDINGS: Image quality: Diagnostic. Lower Neck: No enlarged lymph nodes. Thyroid: No thyroid nodules which require sonographic follow up, per consensus guidelines. Axillae: No enlarged lymph nodes. Chest Wall: Unremarkable. Bones: Unremarkable. Lungs and Pleura: No pneumothorax or pleural effusions. No consolidation or suspicious nodules. Heart: Heart size is normal. No pericardial effusion. Thoracic Vessels: The aorta and pulmonary arteries demonstrate normal size. Mediastinum and Joyce: Stable appearance of mildly enlarged bilateral superior mediastinal nodes as well as nodes in the paratracheal region bilaterally measuring up to 1.6 cm in short axis, also mildly enlarged nodes in the pericarinal region. Esophagus: No wall thickening. No hiatal hernia. Upper Abdomen: Visualized upper abdomen solid organs and bowel loops appear normal. IMPRESSION: Stable mildly enlarged noncalcified mediastinal nodes, no new lung abnormality seen. Dictated by: Radhames Bernal M.D. on 11/05/2024 at 19:06 Approved by: Radhames Bernal M.D. on 11/05/2024 at 19:11
== END ==
PROVIDERS: PCP Family Medicine; Referring Provider Family Medicine; Visit Provider Family Medicine
DX: D86.0 Sarcoidosis of lung (principal); R59.0 Localized enlarged lymph nodes
CPT/HCPCS: 71250